=== PATIENT | female | born 1980 | race Caucasian/White ===

== ENCOUNTER 2019-11-26 15:38 | Observation (INO) ==
[2019-11-26] MEDS ORDERED: NORMAL SALINE 1,000 ML IV ONE ×2 (16:54→19:01)
[2019-11-26] MEDS ORDERED: METOCLOPRAMIDE HCL 5 MG/ML VIAL IV ONE ×2 (16:54→19:01)
[2019-11-26] MEDS ORDERED: ACETAMINOPHEN 1,000 MG/100 ML BTL IV ONE (17:01)
--- NOTE | 2019-11-26 17:03 | ERNOTE ---
Abdominal HPI - General Chief Complaint: Nausea/Vomiting Time Seen by Provider: 11/26/19 16:42 Source: patient Exam Limitations: no limitations - Immun/Allergies/Home Medications Immunizatons: IMMUNIZATION HX Immunizations Up to Date Yes History of Influenza Vaccine No Allergies/Adverse Reactions: Allergies No Known Allergies Allergy (Verified 11/26/19 17:18) Home Medications: HOME MEDICATIONS Insulin Glargine,Hum.rec.anlog [Lantus] 100 unit SQ DAILY 09/06/19 [Last Taken Unknown] Insulin Lispro [Humalog] 10 units SQ BID 09/06/19 [Last Taken Unknown] Metoclopramide HCl [Reglan] 5 mg PO QID 09/06/19 [Last Taken Unknown] Ondansetron [Zofran Odt] 4 mg PO Q6H PRN 09/06/19 [Last Taken Unknown] glipiZIDE [Glipizide] 10 mg PO BID 09/06/19 [Last Taken Unknown] metFORMIN HCL [Metformin HCl ER] 1,000 mg PO BID 09/06/19 [Last Taken Unknown] Ciprofloxacin HCl 500 mg PO BID 5 Days #10 tab 11/24/19 [Last Taken Unknown] - History of Present Illness Narrative: Patient is here for vomiting. she has been a diabetic for 15 years, was diagnosed two years ago with cyclic vomiting syndrome and has episodes every 4-6 weeks. she has extensive evaluation including Xray, CT, ultrasound, gall bladder test, scopes, stomach emptying studies, most the time she had to be admitted for symptoms to resolve. She moved to the area from [place] two months ago and is not established with a doctor here yet. Nine days ago she started to vomit and having the same epigastric pain that she usually get, no diarrhea, she was seen in the ER had labs and Xray, was diagnose with an UTI and felt better after IV fluids and nausea medication. Once she got home she started to vomit again, doesn't think she kept any of her medications down, still not diarrhea. She returns to the ER as she is unable to tolerate anything po. Timing: constant Quality: moderate Associated Symptoms: Present: nausea, vomiting. Absent: diarrhea-gross blood, fever/chills, shortness of breath Prior Abdominal Problems: Present: similar symptoms Prior Treatment: Present: recently seen, currently on antibiotics Review of Systems - Review of Systems Constitutional: Present: malaise. Absent: recent illness ENT: Absent: nose congestion, sore throat Respiratory: Absent: shortness of breath Cardiology: Absent: chest pain Gastrointestinal/Abdominal: Present: See HPI, nausea, abdominal pain. Absent: diarrhea, constipation Genitourinary: Present: frequency. Absent: dysuria Skin: Absent: rash Neurological: Present: weakness. Absent: headache Medical History (Last Updated 11/26/19 @ 19:44 by Cora Olivares MD) Cyclical vomiting Hx of diabetes mellitus Hx of essential hypertension Surgical History: Surgical History (Last Reviewed 11/26/19 @ 19:44 by Cora Olivares MD) History of ankle surgery Family History: Family History (Last Reviewed 11/26/19 @ 17:18 by Yoli Dunaway, RN) Other No pertinent family history Social History: (Last Reviewed 11/26/19 @ 17:18 by Yoli Dunaway, RN) Tobacco: Smoking Status: Never smoker Alcohol: alcohol intake: never Substance Use: substance use type: marijuana Physical Exam - Physical Exam General Appearance: Present: wd/wn, alert, mild distress Head Exam: Present: normal inspection Ears, Nose, Throat: Present: normal pharynx Respiratory: Present: no respiratory distress, normal breath sounds, no accessory muscle use, lungs clear Cardiovascular/Chest: Present: regular rate, rhythm, no murmur Gastrointestinal/Abdominal: Present: normal bowel sounds, nondistended, soft, tenderness - mild epigastric Back Exam: Present: no CVA tenderness Extremity Exam: Present: normal except - - right foot between 1st and 2nd toe skin ulcer involving both toes, left foot: on 1st, 3rd, 4th toe healing wound, no obvious open areas, no edema Neurological Exam: Present: alert, oriented, normal mood/affect Skin Exam: Present: normal color, warm/dry Progress - Results and Orders Patient's Lab Results:: I have reviewed the patient's lab results. - Vital Signs Patient's Vital Signs:: I have reviewed the patient's vital signs. Vital Signs: Vital Signs 11/26/19 15:44 Temperature 36.5 C Pulse Rate 112 H Respiratory Rate 20 Blood Pressure 194/94 H O2 Sat by Pulse Oximetry 100 - Progress/Reassessment Chief Complaint: Nausea/Vomiting Progress Note-Subjective: 11/26/19 16:59 reviewed chart from last visit urine cx grew E coli sensitive to cipro as same symptom will concentrate on symptoms control rather than running more tests 11/26/19 18:07 patient states that nausea and pain are somewhat better after reglan and IV tylenol, still vomited small amount she now shows me wound on her right foot between her 1st and 2nd toe, she noticed that after getting out of the shower about six days ago, has been taking a lot of showers as that seems to help the nausea will get labs now as glucose is elevated 11/26/19 19:02 patient vomiting again, pain also increased 11/26/19 19:[address] Grover, okay to admit for observation for intractable vomiting Departure Clinical Impression: Intractable cyclical vomiting - Departure Disposition: Still a patient Condition: Stable
[2019-11-26] MEDS ORDERED: cefTRIAXone SODIUM 1,000 MG/100 ML BAG IV ONE (18:07)
[2019-11-26] MEDS ORDERED: diphenhydrAMINE HCL 50 MG/ML VIAL IV ONE (18:07)
[2019-11-26 18:31] LABS: Hemoglobin 12.2 gm/dL (12.5-16.0); Mean Cell Volume 91.1 fl (78-100); Mean Corpuscular Hemoglobin 31.8 pg (27-31); Mean Corpuscular Hgb Conc 34.9 g/dl (32-36); Mean Platelet Volume 9.2 fl (8-12.5); Neutrophil % 67.6 % (42-75.0); Platelet Count 412 K/mm3 (150-450); Red Blood Count 3.84 M/mm3 (4.2-5.4); Red Cell Distribution Width 11.4 % (11.5-14.0); White Blood Count 10.4 K/mm3 (4.0-10.5)
[2019-11-26 18:48] LABS: ALT 20 U/L (19-67); AST 13 U/L (0-48); Albumin * 3.2 gm/dl (3.4-5.0); Alkaline Phosphatase * 113 U/L (50-170); Anion Gap 14.1 mmol/L (6.8-13.8); BUN/Creatinine Ratio 14.7 (9.0-21.6); Bilirubin, Total 0.6 mg/dL (0.0-1.1); Blood Urea Nitrogen 11 mg/dL (3-23); CRP 0.2 mg/dL (0.0-0.9); Calcium * 8.7 mg/dL (7.9-10.9); Carbon Dioxide 26.7 mmol/L (24-32.6); Chloride 96 mmol/L (97-106); Glucose * 260 mg/dL (70-110); Potassium 3.8 mmol/L (3.4-4.6); Sodium 133 mmol/L (132-142); Total Protein 7.1 gm/dL (6.2-8.2)
[2019-11-26] MEDS ORDERED: ONDANSETRON HCL/PF 2 MG/ML VIAL IV PRN (19:18)
[2019-11-26] MEDS: HYDROmorphone HCL 1 MG/ML DISP.SYRIN IV PRN ×2 (19:29→23:38)
--- NOTE | 2019-11-26 19:36 | HP ---
Chief Complaint - Chief Complaint Date of Service: 11/26/19 Time of Service: 19:08 Chief Complaint: Nausea and vomiting and abdominal pain History of Present Illness: 39-year-old female with a past medical history of diabetes mellitus, hypertension, questionable gastroparesis versus cyclical vomiting syndrome presents with complaints of intractable vomiting and nausea. She states her symptoms began on 9 days ago. She was seen in the emergency department 2 days ago and was given IV fluids, told she had a urinary tract infection and sent home with antibiotics. She returns today to her symptoms not resolving. She complains of epigastric abdominal pain, denies diarrhea or sick contacts. She denies dysuria or urinary frequency. States she noted that her urine was foul- smelling and the color had changed. In the ER she was given a dose of ceftriaxone urinary tract infection because she had not been able to keep the antibiotics down. She does have a history of marijuana use. She states she uses it for management of her pain. She is being admitted for intractable vomiting. Medical History (Last Reviewed 11/26/19 @ 17:18 by Yoli Dunaway RN) Hx of diabetes mellitus Hx of essential hypertension Surgical History: Surgical History (Last Reviewed 11/26/19 @ 17:18 by Yoli Dunaway RN) History of ankle surgery Family History: Family History (Last Reviewed 11/26/19 @ 17:18 by Yloi Dunaway RN) Other No pertinent family history Social History: (Last Reviewed 11/26/19 @ 17:18 by Yoli Dunaway RN) Tobacco: Smoking Status: Never smoker Alcohol: alcohol intake: never Substance Use: substance use type: marijuana Review Of Systems (GEN) - Review of Systems Generalized/Overall Review: Present: Chills. Absent: Fever Respiratory: Absent: Shortness of Breath Cardiac: Absent: Chest Pain Abdominal: Present: Nausea, Vomiting, Abdominal Pain - Epigastric Misc: All systems neg except as marked Immunizations: IMMUNIZATION HX Immunizations Up to Date Yes History of Influenza Vaccine No Allergies/Adverse Reactions: Allergies Allergy/AdvReac Type Severity Reaction Status Date / Time No Known Allergies Allergy Verified 11/26/19 17:18 Home Medications: HOME MEDICATIONS Insulin Glargine,Hum.rec.anlog [Lantus] 100 unit SQ DAILY 09/06/19 [Last Taken Unknown] Insulin Lispro [Humalog] 10 units SQ BID 09/06/19 [Last Taken Unknown] Metoclopramide HCl [Reglan] 5 mg PO QID 09/06/19 [Last Taken Unknown] Ondansetron [Zofran Odt] 4 mg PO Q6H PRN 09/06/19 [Last Taken Unknown] glipiZIDE [Glipizide] 10 mg PO BID 09/06/19 [Last Taken Unknown] metFORMIN HCL [Metformin HCl ER] 1,000 mg PO BID 09/06/19 [Last Taken Unknown] Ciprofloxacin HCl 500 mg PO BID 5 Days #10 tab 11/24/19 [Last Taken Unknown] Exam - Exam Vital Signs: Vital Signs - Last Taken Temp 36.5 C 11/26/19 15:44 Pulse 111 H 11/26/19 17:15 Resp 14 11/26/19 17:15 BP 182/115 H 11/26/19 17:15 Pulse Ox 100 11/26/19 17:15 Constitutional: Present: Alert, Cooperative, Well developed, Well nourished ENT Exam: Present: hearing grossly normal Eye Exam: bilateral eye: normal inspection Neck: Present: normal inspection Back Exam: Present: no CVA tenderness, no vertebral tenderness Respiratory: Present: lungs clear, no respiratory distress, no accessory muscle use, No wheezing. Absent: crackles, rhonchi Cardiovascular/Chest: Present: normal peripheral pulses, regular rate, rhythm, no murmur Peripheral Pulses: dorsalis-pedis (R): 1+, dorsalis-pedis (L): 1+ Abdomen: Present: Normal bowel sounds, soft, nontender Extremity: Present: no pedal edema Skin Exam: Present: normal color, warm/dry Neurologic: Present: alert, normal mood/affect Appearance: Present: appropriate appearance, appropriate insight Eye contact: Present: cooperative Thoughts: Present: normal thought pattern, normal mood /affect Diagnostic Studies: Abnormal Lab Results 11/26/19 11/26/19 Range/Units 18:25 18:25 RBC 3.84 L (4.2-5.4) M/mm3 Hgb 12.2 L (12.5-16.0) gm/dL Hct 35.0 L (37.0-47.0) % MCH 31.8 H (27-31) pg RDW 11.4 L (11.5-14.0) % Immature Gran % (Auto) 0.50 H (0.001-0.429) % Immature Gran # (Auto) 0.05 H (0.000-0.0310) K/mm3 Neutrophils # 7.0 H (1.3-6.0) K/mm3 Chloride 96 L (97-106) mmol/L Anion Gap 14.1 H (6.8-13.8) mmol/L Random Glucose 260 H (70-110) mg/dL Albumin 3.2 L (3.4-5.0) gm/dl Laboratory Results WBC 10.4 K/mm3 (4.0-10.5) D 11/26/19 18:25 RBC 3.84 M/mm3 (4.2-5.4) L 11/26/19 18:25 Hgb 12.2 gm/dL (12.5-16.0) L 11/26/19 18:25 Hct 35.0 % (37.0-47.0) L 11/26/19 18:25 MCV 91.1 fl (78-100) 11/26/19 18:25 MCH 31.8 pg (27-31) H 11/26/19 18:25 MCHC 34.9 g/dl (32-36) 11/26/19 18:25 RDW 11.4 % (11.5-14.0) L 11/26/19 18:25 Plt Count 412 K/mm3 (150-450) 11/26/19 18:25 MPV 9.2 fl (8-12.5) 11/26/19 18:25 Immature Gran % (Auto) 0.50 % (0.001-0.429) H 11/26/19 18:25 Immature Gran # (Auto) 0.05 K/mm3 (0.000-0.0310) H 11/26/19 18:25 Neutrophils % 67.6 % (42-75.0) 11/26/19 18:25 Lymphocytes % 24.8 % (20-51) 11/26/19 18:25 Monocytes % 6.4 % (0.0-9) 11/26/19 18:25 Eosinophils % 0.3 % (0.0-3.0) 11/26/19 18:25 Basophils % 0.4 % (0.0-1.0) 11/26/19 18:25 Nucleated RBC % 0.0 k/mm3 (0-1) 11/26/19 18:25 Neutrophils # 7.0 K/mm3 (1.3-6.0) H 11/26/19 18:25 Lymphocytes # 2.57 k/mm3 (1.5-3.5) 11/26/19 18:25 Monocytes # 0.7 k/mm3 (0.0-1.0) 11/26/19 18:25 Eosinophils # 0.0 k/mm3 (0.0-0.7) 11/26/19 18:25 Absolute Basophils 0.0 k/mm3 (0.0-0.1) 11/26/19 18:25 VBG pH 7.387 (7.32-7.43) 11/26/19 18:25 Sodium 133 mmol/L (132-142) 11/26/19 18:25 Plasma Sodium 136 mmol/L (130-142) 11/26/19 18:25 Potassium 3.8 mmol/L (3.4-4.6) 11/26/19 18:25 Chloride 96 mmol/L (97-106) L 11/26/19 18:25 Carbon Dioxide 26.7 mmol/L (24-32.6) 11/26/19 18:25 Anion Gap 14.1 mmol/L (6.8-13.8) H 11/26/19 18:25 BUN 11 mg/dL (3-23) 11/26/19 18:25 Creatinine 0.75 mg/dL (0.4-1.4) 11/26/19 18:25 Est GFR (Non-Af Amer) 92 mL/min (60-130) 11/26/19 18:25 BUN/Creatinine Ratio 14.7 (9.0-21.6) 11/26/19 18:25 Random Glucose 260 mg/dL (70-110) H 11/26/19 18:25 Calcium 8.7 mg/dL (7.9-10.9) 11/26/19 18:25 Calcium Adj for Albumin 9.0 mg/dL (8.4-10.2) 11/26/19 18:25 Total Bilirubin 0.6 mg/dL (0.0-1.1) 11/26/19 18:25 AST 13 U/L (0-48) 11/26/19 18:25 ALT 20 U/L (19-67) 11/26/19 18:25 Alkaline Phosphatase 113 U/L (50-170) 11/26/19 18:25 C-Reactive Prot, Quant 0.2 mg/dL (0.0-0.9) 11/26/19 18:25 Total Protein 7.1 gm/dL (6.2-8.2) 11/26/19 18:25 Albumin 3.2 gm/dl (3.4-5.0) L 11/26/19 18:25 Serum Ketones Negative (NEGATIVE) 11/26/19 18:25 Assessment/Plan - Narrative Narrative: 39-year-old female with a past medical history of diabetes mellitus, hypertension, questionable gastroparesis versus cyclical vomiting syndrome presents with complaints of intractable vomiting and nausea. She states her symptoms began on 9 days ago. In the ER she was given a dose of ceftriaxone urinary tract infection because she had not been able to keep the antibiotics down. She does have a history of marijuana use. She states she uses it for management of her pain. She is being admitted for intractable vomiting. Plan #1 continue with Zofran 4 mg IV every 6 hours as needed #2 IV fluid hydration with normal saline #3 Vasotec for hypertension #4 CBC and CMP in the morning #5 resume home medications for comorbidities #6 advance diet as tolerated - Assessment/Plan (1) Intractable cyclical vomiting Problem: Acute (2) Hypertension Problem: Chronic Qualifiers: Hypertension type: essential hypertension Qualified Code(s): I10 - Essential (primary) hypertension (3) Diabetes Problem: Chronic Qualifiers: Diabetes mellitus type: type 2 (4) Urinary tract infection Problem: Acute
[2019-11-26] MEDS: ENALAPRILAT DIHYDRATE 1.25 MG/ML VIAL IV SCH (21:24)
[2019-11-26] MEDS ORDERED: PROMETHAZINE HCL 25 MG TABLET PO ONE (22:01)
[2019-11-27] MEDS: ENALAPRILAT DIHYDRATE 1.25 MG/ML VIAL IV SCH ×2 (02:15→12:20)
[2019-11-27] MEDS: METOCLOPRAMIDE HCL 5 MG/ML VIAL IV PRN ×2 (02:22→08:55)
[2019-11-27] MEDS: HYDROmorphone HCL 1 MG/ML DISP.SYRIN IV PRN ×2 (03:43→08:29)
[2019-11-27 06:39] LABS: Mean Cell Volume 90.9 fl (78-100); Mean Corpuscular Hemoglobin 31.3 pg (27-31); Mean Corpuscular Hgb Conc 34.4 g/dl (32-36); Mean Platelet Volume 9.5 fl (8-12.5); Neutrophil # 4.4 K/mm3 (1.3-6.0); Neutrophil % 42.9 % (42-75.0); Platelet Count 360 K/mm3 (150-450); Red Blood Count 3.52 M/mm3 (4.2-5.4); Red Cell Distribution Width 11.3 % (11.5-14.0); White Blood Count 10.3 K/mm3 (4.0-10.5)
[2019-11-27 06:50] LABS: Albumin * 2.6 gm/dl (3.4-5.0); Anion Gap 8.7 mmol/L (6.8-13.8); BUN/Creatinine Ratio 10.9 (9.0-21.6); Bilirubin, Total 0.6 mg/dL (0.0-1.1); Ca. Corrected For Albumin 9.3 mg/dL (8.4-10.2); Calcium * 8.5 mg/dL (7.9-10.9); Carbon Dioxide 26.8 mmol/L (24-32.6); Potassium 3.5 mmol/L (3.4-4.6); Total Protein 5.9 gm/dL (6.2-8.2)
[2019-11-27] MEDS ORDERED: LISINOPRIL 20 MG TABLET PO SCH (09:00)
[2019-11-27] MEDS ORDERED: INSULIN GLARGINE,HUM.REC.ANLOG 100 UNITS/ML VIAL SC SCH ×2 (09:00→16:00)
[2019-11-27] MEDS ORDERED: GABAPENTIN 100 MG CAPSULE PO PRN (09:31)
[2019-11-27] MEDS: glipiZIDE 10 MG TABLET PO SCH ×2 (09:38→22:04)
[2019-11-27] MEDS ORDERED: METOCLOPRAMIDE HCL 10 MG TABLET PO PRN (10:05)
[2019-11-27] MEDS: CIPROFLOXACIN HCL 500 MG TABLET PO SCH ×2 (10:39→21:05)
--- NOTE | 2019-11-27 11:37 | PN ---
Subjective - Date and Time Seen Date: 11/27/19 Time: 09:38 Subjective Narrative: She states she feels better today. Denies nausea vomiting this morning. Abdominal pain is being controlled well with the Dilaudid. She is tolerating liquids Objective - Review of Systems Generalized/Overall Review: Denies: Chills, Fever Respiratory: Denies: Shortness of Breath Cardiac: Denies: Chest Pain Abdominal: Reports: Nausea. Denies: Vomiting, Abdominal Pain Misc: All systems neg except as marked - Vitals Vitals: Last Vital Signs Temp 36.8 C 11/27/19 06:43 Pulse 99 11/27/19 09:37 Resp 16 11/27/19 06:43 BP 178/108 H 11/27/19 09:37 Pulse Ox 100 11/27/19 06:43 - Abnormal Lab Findings Abnormal Lab Findings: Abnormal Lab Results 11/26/19 11/26/19 11/27/19 Range/Units 18:25 18:25 06:15 RBC 3.84 L 3.52 L (4.2-5.4) M/mm3 Hgb 12.2 L 11.0 L (12.5-16.0) gm/dL Hct 35.0 L 32.0 L (37.0-47.0) % MCH 31.8 H 31.3 H (27-31) pg RDW 11.4 L 11.3 L (11.5-14.0) % Immature Gran % (Auto) 0.50 H (0.001-0.429) % Immature Gran # (Auto) 0.05 H 0.04 H (0.000-0.0310) K/mm3 Neutrophils # 7.0 H (1.3-6.0) K/mm3 Lymphocytes # 4.85 H (1.5-3.5) k/mm3 Sodium (132-142) mmol/L Chloride 96 L (97-106) mmol/L Anion Gap 14.1 H (6.8-13.8) mmol/L Est GFR (Non-Af Amer) (60-130) mL/min Random Glucose 260 H (70-110) mg/dL ALT (19-67) U/L Total Protein (6.2-8.2) gm/dL Albumin 3.2 L (3.4-5.0) gm/dl 11/27/19 Range/Units 06:15 RBC (4.2-5.4) M/mm3 Hgb (12.5-16.0) gm/dL Hct (37.0-47.0) % MCH (27-31) pg RDW (11.5-14.0) % Immature Gran % (Auto) (0.001-0.429) % Immature Gran # (Auto) (0.000-0.0310) K/mm3 Neutrophils # (1.3-6.0) K/mm3 Lymphocytes # (1.5-3.5) k/mm3 Sodium 130 L (132-142) mmol/L Chloride (97-106) mmol/L Anion Gap (6.8-13.8) mmol/L Est GFR (Non-Af Amer) 132 H D (60-130) mL/min Random Glucose 194 H (70-110) mg/dL ALT 12 L (19-67) U/L Total Protein 5.9 L (6.2-8.2) gm/dL Albumin 2.6 L (3.4-5.0) gm/dl - Exam Constitutional: Present: Alert, Cooperative, Well developed, Well nourished, Obese ENT Exam: Present: hearing grossly normal Neck: Present: non-tender, supple, trachea midline. Absent: lymphadenopathy (R), lymphadenopathy (L) Respiratory: Present: lungs clear, No wheezing. Absent: crackles, rhonchi Cardiovascular/Chest: Present: normal peripheral pulses, regular rate, rhythm, no murmur Abdomen: Present: Normal bowel sounds, soft, nontender Extremity: Present: no pedal edema Skin Exam: Present: normal color, warm/dry Neurologic: Present: alert, normal mood/affect Appearance: Present: appropriate appearance Eye contact: Present: cooperative Thoughts: Present: normal thought pattern Assessment/Plan Plan Narrative: 39-year-old female with a past medical history of diabetes mellitus, hypertension, questionable gastroparesis versus cyclical vomiting syndrome presents with complaints of intractable vomiting and nausea. She states her symptoms began on 9 days ago. In the ER she was given a dose of ceftriaxone urinary tract infection because she had not been able to keep the antibiotics down. She does have a history of marijuana use. She states she uses it for management of her pain. She is being admitted for intractable vomiting. Plan #1 Transition to oral medications, Reglan 10 mg every 6 hours as needed and Percocet 5-325 mg every 4 hours as needed #2 Stop IV fluids because she is tolerating her diet. #3 Stop Vasotec and restart her on her lisinopril 20 mg daily #4 Advance diet as tolerated #5 Continue with home medications for comorbidities - Problems/Diagnosis (1) Intractable cyclical vomiting Problem: Acute (2) Hypertension Problem: Chronic Qualifiers: Hypertension type: essential hypertension Qualified Code(s): I10 - Essential (primary) hypertension (3) Diabetes Problem: Chronic Qualifiers: Diabetes mellitus type: type 2 (4) Urinary tract infection Problem: Acute
[2019-11-27] MEDS: INSULIN LISPRO 100 UNITS/ML VIAL SC SCH ×2 (12:26→22:04)
[2019-11-27] MEDS ORDERED: amLODIPine BESYLATE 5 MG TABLET PO SCH (13:30)
[2019-11-27] MEDS: oxyCODONE HCL/ACETAMINOPHEN 1 TAB TABLET PO PRN ×2 (14:03→19:24)
--- NOTE | 2019-11-27 16:48 | DS ---
(1) Intractable cyclical vomiting Problem: Resolved (2) Hypertension Problem: Chronic Qualifiers: Hypertension type: essential hypertension Qualified Code(s): I10 - Essential (primary) hypertension (3) Diabetes Problem: Chronic Qualifiers: Diabetes mellitus type: type 2 (4) Urinary tract infection Problem: Acute Qualifiers: Urinary tract infection type: acute cystitis Hospital Course: 39-year-old female with a past medical history of diabetes mellitus, hypertension, questionable gastroparesis versus cyclical vomiting syndrome presents with complaints of intractable vomiting and nausea. She states her symptoms began on 9 days ago. In the ER she was given a dose of ceftriaxone urinary tract infection because she had not been able to keep the antibiotics down. She does have a history of marijuana use. She states she uses it for management of her pain. She was admitted for intractable vomiting. Her nausea and vomiting improved and were managed with oral medications. Pain was managed with oral medications she tolerated an oral diet. She is stable to be discharged home. She should follow-up with a primary care provider within 1 week of discharge. Procedures Performed: none Results and Findings: Lab Pending Results 11/26/19 18:25: WBC 10.4 D, RBC 3.84 L, Hgb 12.2 L, Hct 35.0 L, MCV 91.1, MCH 31.8 H, MCHC 34.9, RDW 11.4 L, Plt Count 412, MPV 9.2, Immature Gran % (Auto) 0. 50 H, Immature Gran # (Auto) 0.05 H, Neutrophils % 67.6, Lymphocytes % 24.8, Monocytes % 6.4, Eosinophils % 0.3, Basophils % 0.4, Nucleated RBC % 0.0, Neutrophils # 7.0 H, Lymphocytes # 2.57, Monocytes # 0.7, Eosinophils # 0.0, Absolute Basophils 0.0 11/26/19 18:25: VBG pH 7.387 11/26/19 18:25: Sodium 133, Plasma Sodium 136, Potassium 3.8, Chloride 96 L, Carbon Dioxide 26.7, Anion Gap 14.1 H, BUN 11, Creatinine 0.75, Est GFR (Non-Af Amer) 92, BUN/Creatinine Ratio 14.7, Random Glucose 260 H, Calcium 8.7, Calcium Adj for Albumin 9.0, Total Bilirubin 0.6, AST 13, ALT 20, Alkaline Phosphatase 113, C-Reactive Prot, Quant 0.2, Total Protein 7.1, Albumin 3.2 L, Serum Ketones Negative 11/27/19 06:15: WBC 10.3, RBC 3.52 L, Hgb 11.0 L, Hct 32.0 L, MCV 90.9, MCH 31.3 H, MCHC 34.4, RDW 11.3 L, Plt Count 360, MPV 9.5, Immature Gran % (Auto) 0.40, Immature Gran # (Auto) 0.04 H, Neutrophils % 42.9, Lymphocytes % 47.1, Monocytes % 7.7, Eosinophils % 1.5, Basophils % 0.4, Nucleated RBC % 0.0, Neutrophils # 4.4, Lymphocytes # 4.85 H, Monocytes # 0.8, Eosinophils # 0.2, Absolute Basophils 0.0 11/27/19 06:15: Sodium 130 L, Plasma Sodium 132, Potassium 3.5, Chloride 98, Carbon Dioxide 26.8, Anion Gap 8.7, BUN 6, Creatinine 0.55, Est GFR (Non-Af Amer) 132 H D, BUN/Creatinine Ratio 10.9, Random Glucose 194 H, Calcium 8.5, Calcium Adj for Albumin 9.3, Total Bilirubin 0.6, AST 10, ALT 12 L, Alkaline Phosphatase 86, Total Protein 5.9 L, Albumin 2.6 L Discharge Location: Home Disposition: Home self-care Condition: Stable Discharge Activity: Activity as tolerated Discharge Diet: Consistent carbs Prescriptions (Any new or edited meds): Ciprofloxacin HCl [Cipro] 500 mg PO BID #5 tab Transmission Status: Pending to [facility] #[id number] amLODIPine BESYLATE [Norvasc] 5 mg PO DAILY #14 tab Transmission Status: Pending to [facility] #[id number] oxyCODONE HCL/ACETAMINOPHEN [Percocet 5 MG/325 MG] 1 tab PO BID PRN #8 tab PRN Reason: Moderate Pain (Pain Scale 4-6) Transmission Status: Received by [facility] #[id number] Complete Home Medications List: Complete Home Medication List: Insulin Glargine,Hum.rec.anlog [Lantus] 100 unit SQ 1600 09/06/19 Insulin Lispro [Humalog] 10 units SQ BID 09/06/19 Metoclopramide HCl [Reglan] 5 mg PO QID 09/06/19 Ondansetron [Zofran Odt] 4 mg PO Q6H PRN 09/06/19 glipiZIDE [Glipizide] 10 mg PO BID 09/06/19 metFORMIN HCL [Metformin HCl ER] 500 mg PO BID 09/06/19 Ciprofloxacin HCl 500 mg PO BID 5 Days #10 tab 11/24/19 Ciprofloxacin HCl [Cipro] 500 mg PO BID #5 tab 11/27/19 Gabapentin [Neurontin] 100 mg PO BID PRN 11/27/19 Lisinopril [Zestril] 20 mg PO DAILY 11/27/19 Pravastatin Sodium 10 mg PO DAILY 11/27/19 amLODIPine BESYLATE [Norvasc] 5 mg PO DAILY #14 tab 11/27/19 oxyCODONE HCL/ACETAMINOPHEN [Percocet 5 MG/325 MG] 1 tab PO BID PRN #8 tab 11/27/19
[2019-11-27 21:00] VITALS: BP 143/84
[2019-11-28] MEDS ORDERED: SIMVASTATIN 5 MG TABLET PO SCH (09:00)
== END 2019-11-27 21:15 | disposition home or self-care (01) ==
LOC: MS 15:38 → ER 15:38 → MS 19:49
PROVIDERS: ADMIT Internal Medicine; ATTEND Internal Medicine
DX: I10 Essential (primary) hypertension; R11.15 Cyclical vomiting syndrome unrelated to migraine; N39.0 Urinary tract infection, site not specified; E11.9 Type 2 diabetes mellitus without complications
CPT/HCPCS: 36415; 80053; 82009; 82800; 85025; 86140; 96365; 96366; 96372; 96375; 99285; G0378; J0131

== ENCOUNTER 2020-11-26 23:01 | Inpatient (IN) ==
[2020-11-26] MEDS ORDERED: INSULIN REGULAR, HUMAN 100 UNITS/ML VIAL IV ONE (23:14)
[2020-11-26] MEDS ORDERED: NORMAL SALINE 1,000 ML IV STA (23:14)
[2020-11-26] MEDS ORDERED: ONDANSETRON HCL/PF 2 MG/ML VIAL IV ONE (23:25)
[2020-11-26 23:46] LABS: Hematocrit 37.4 % (37.0-47.0); Hemoglobin 11.9 gm/dL (12.5-16.0); Mean Cell Volume 96.4 fl (78-100); Mean Corpuscular Hemoglobin 30.7 pg (27-31); Mean Corpuscular Hgb Conc 31.8 g/dl (32-36); Mean Platelet Volume 11.1 fl (8-12.5); Platelet Count 366 K/mm3 (150-450); Red Blood Count 3.88 M/mm3 (4.2-5.4); Red Cell Distribution Width 12.5 % (11.5-14.0); White Blood Count 18.1 K/mm3 (4.0-10.5)
[2020-11-26 23:49] LABS: Total Cells Counted 100
--- NOTE | 2020-11-26 23:52 | ERNOTE ---
<Sally Mcmillan - Last Filed: 11/27/20 07:55> Medical Problem HPI - Narrative Date of Service: 11/26/20 - General Chief Complaint: Diabetes Related Problem Time Seen by Provider: 11/26/20 23:09 Source: patient Exam Limitations: no limitations - Immun/Allergies/Home Medications Immunizations: IMMUNIZATION HX Immunizations Up to Date Yes History of Influenza Vaccine No Hx Pneumococcal Vaccination No Allergies/Adverse Reactions: Allergies No Known Allergies Allergy (Verified 11/27/20 14:03) Home Medications: HOME MEDICATIONS Blood Sugar Diagnostic [Test Strips] 1 ea MC QID #1 bottle 01/15/20 [Last Taken Unknown] Lisinopril 20 mg PO DAILY #30 tab 01/15/20 [Last Taken Unknown] amLODIPine BESYLATE [Norvasc] 5 mg PO DAILY #30 tab 01/15/20 [Last Taken U nknown] glipiZIDE [Glipizide] 10 mg PO BID #60 tab 01/15/20 [Last Taken Unknown] metFORMIN HCL [Metformin HCl ER] 500 mg PO BID #60 tab.er.24h 01/15/20 [Last Taken Unknown] Gabapentin 300 mg PO TID 10/19/20 [Last Taken Unknown] Promethazine HCl [Phenergan] 25 mg PO QID PRN #10 tab 10/19/20 [Last Taken Unknown] Acyclovir [Zovirax] 400 mg PO TID PRN 11/27/20 [Last Taken Unknown] HYDROcodone/ACETAMINOPHEN [Hydrocodon-Acetaminophen 5-325] 1 ea PO Q4H PRN 11/27/20 [Last Taken Unknown] Insulin Aspart [Novolog Flexpen] 10 unit SQ BIDAC 11/27/20 [Last Taken Unknown] Insulin Glargine,Hum.rec.anlog [Lantus Solostar] 50 unit SQ .QPM 11/27/20 [Last Taken Unknown] Insulin Glargine,Hum.rec.anlog [Lantus Solostar] 55 unit SQ .QAM 11/27/20 [Last Taken Unknown] Ketorolac Tromethamine 10 mg PO QID PRN 11/27/20 [Last Taken Unknown] Metoclopramide HCl [Reglan] 10 mg PO QID 11/27/20 [Last Taken Unknown] Nortriptyline HCl 50 mg PO HS 11/27/20 [Last Taken Unknown] hydrOXYzine HCL [Atarax] 10 mg PO QID PRN 11/27/20 [Last Taken Unknown] - History of Present History Narrative: Patient is brought in by ambulance. We received report that she was unresponsive however she is responsive and answering questions here. She brings in paperwork from the last few days, she was seen here and another facility diagnosed twice with cyclic vomiting. Her boyfriend states that she has been completely unable to keep any oral medication down as well as any fluids. The patient herself states that is been a very long time since she urinated. She is dry heaving here. She does have history of diabetes. She is insulin-dependent although she states she is type II. She reports she is very weak, cannot stop vomiting. Review of Systems - Review of Systems Constitutional: Present: weakness, fatigue EYE: Present: blurred vision Respiratory: Present: shortness of breath Cardiology: Present: chest pain Gastrointestinal/Abdominal: Present: nausea, vomiting Genitourinary: Present: decreased urinary output Skin: Present: dryness Endocrine: Present: increased thirst Medical History (Last Reviewed 11/26/20 @ 23:49 by Sally Mcmillan MD) Cyclical vomiting Hx of diabetes mellitus type 2 Hx of essential hypertension Hypercholesteremia Neuropathy Surgical History: Surgical History (Last Reviewed 11/26/20 @ 23:49 by Sally Mcmillan MD) History of ankle surgery Family History: Family History (Last Reviewed 11/26/20 @ 23:49 by Sally Mcmillan MD) Other No pertinent family history Social History: (Last Reviewed 11/26/20 @ 23:49 by Sally Mcmillan MD) Social History: adopted: No Marital status: Single lives independently: Yes household members: significant other number of children: 0 parent marital status: umarried, living together current occupational status: unemployed Highest level of school completed/degree received: high school graduate Tobacco: Smoking Status: Never smoker Alcohol: alcohol intake: never Substance Use: substance use type: marijuana details: states she hasn't used for 2 weeks Dietary Habits: caffeine: No Physical Exam - Physical Exam General Appearance: Present: moderate distress - smells of DKA, lethargic - lips are dry and cracked Head Exam: Present: normal inspection - I told Eye Exam: Normal inspection: bilateral, PERRL: bilateral Respiratory: Present: normal breath sounds - tachypnea Cardiovascular/Chest: Present: tachycardia Gastrointestinal/Abdominal: Present: nontender, soft Neurological Exam: Present: alert, oriented Skin Exam: Present: normal color, warm/dry Progress - Results and Orders Patient's Lab Results:: I have reviewed the patient's lab results. Results and Orders: Laboratory Tests 11/26/20 11/26/20 11/26/20 23:45 23:45 23:45 WBC 18.1 H D Hgb 11.9 L Hct 37.4 Plt Count 366 Sodium 136 Potassium 3.0 L Chloride 93 L Carbon Dioxide 5.3 L Anion Gap 40.7 H Lactic Acid, Venous 1.5 Creatine Kinase 123 Troponin I Less than 0.017 Serum Ketones Positive - 80mg/dl H Laboratory Tests 11/26/20 23:45 Creatinine 1.56 H D Est GFR (Non-Af Amer) 39 L D Random Glucose 815 H Calcium 8.6 AST 13 ALT 22 Alkaline Phosphatase 110 Laboratory Tests 11/27/20 02:45 Plasma Sodium 150 H Potassium 3.0 L Chloride 104 Carbon Dioxide 8.5 L Anion Gap 33.5 H BUN 54 H Creatinine 1.33 BUN/Creatinine Ratio 40.6 H Random Glucose 542 H D AST 12 ALT 21 Alkaline Phosphatase 104 Total Protein 6.1 L Albumin 2.6 L Laboratory Tests 11/27/20 11/27/20 02:45 04:30 Sodium 143 H 143 H Plasma Sodium 149 H Potassium 3.0 L 3.0 L Carbon Dioxide 8.5 L 11.3 L Anion Gap 33.5 H 29.7 H BUN 54 H 51 H Est GFR (Non-Af Amer) 47 L D 51 L BUN/Creatinine Ratio 40.6 H 40.5 H Random Glucose 542 H D 474 H Laboratory Tests 11/27/20 06:05 Sodium 145 H Potassium 2.7 L Chloride 108 H Carbon Dioxide 14.5 L Anion Gap 25.2 H BUN 48 H Creatinine 1.27 Est GFR (Non-Af Amer) 50 L BUN/Creatinine Ratio 37.8 H Random Glucose 406 H - Vital Signs Patient's Vital Signs:: I have reviewed the patient's vital signs. Vital Signs: Vital Signs 11/26/20 23:04 Temperature 36.2 C Pulse Rate 100 Respiratory Rate 28 H O2 Sat by Pulse Oximetry 99 - EKG EKG #1 EKG: NSR EKG read: Interp. by me EKG Comments: EKG shows normal sinus rhythm, no ST elevations or depressions. Ventricular rate is 99. - Progress/Reassessment Chief Complaint: Diabetes Related Problem Progress:: Improved Progress Note-Subjective: 11/27/20 01:00 pt refused ABGs. She continued to be very combative, pulling at IVs and plunkett catheter. Her boyfriend was helpful for a time in keeping her distracted and IV lorazapam was also used to try to calm pt and help her follow directions and stop pulling at lines. These measures were unsuccessful, and eventually the pt had to be placed in soft restraints with UEs only for her benefit so that we could continue to treat her, given the severity of her medical condition. Her boyfriend agreed, and welcomed this treatment measure as he could see that her behavior was making it difficult to take care of her medically. She received 3L IVF, 1LNS with 40 KCL, insulin drip, zofran. She required lorazapam X2 to calm. She eventually was able to rest. Second set of labs were improved. Blood sugar 500s, potassium stable although still low. She is sleeping and not able to take oral potassium at this time. Rate of IV potassium is increa sed and insulin drip is decreased from 11units per hour to 8 units per hour. We attempted to have patient admitted to floor, but unable due to lack of staffing. She is unable to be transferred to facility elsewhere due to lack of available transportation. We will continue to care for her here, repeat blood sugar and potassium q 1 hour and adjust accordingly. 11/27/20 03:29 11/27/20 04:55 pts repeat labs are improving. potassium continues to be 3.0. blood sugar is 474. vitals are also stabilizing. pulse 101. bp 134/71. she is resting comfortably. restraints removed. insulin drip continued at 8units. potassium drip continued at 60/hr. 11/27/20 04:55 11/27/20 07:45 Patient continues resting. Still unable to take p.o. potassium. Continues receiving IV potassium replacement and 8 units of insulin hourly. Staffing continues to be a problem here. Placement at other facilities with transportation continues to be a problem. Estimated time of potential departure for another facility is approximately 3 hours out. Discussed case with oncoming physician. Care is transitioned at 0800. Plan currently is to work on increasing potassium and transfer to another facility when able. - Transfer of Care Physician Sign Out: Sally Mcmillan Receiving Physician: Bart Oliver Expected Disposition: Transfer Departure Clinical Impression: DKA (diabetic ketoacidoses), Hypokalemia with shifts of fluid from extracellular to intracellular space - Departure Disposition: Still a patient Condition: Stable <Bart Oliver - Last Filed: 12/01/20 10:57> Medical Problem HPI - Immun/Allergies/Home Medications Immunizations: IMMUNIZATION HX Immunizations Up to Date Yes History of Influenza Vaccine No Hx Pneumococcal Vaccination No Medical History (Last Reviewed 11/26/20 @ 23:49 by Sally Mcmillan MD) Cyclical vomiting Hx of diabetes mellitus type 2 Hx of essential hypertension Hypercholesteremia Neuropathy Surgical History: Surgical History (Last Reviewed 11/26/20 @ 23:49 by Sally Mcmillan MD) History of ankle surgery Family History: Family History (Last Reviewed 11/26/20 @ 23:49 by Sally Mcmillan MD) Other No pertinent family history Social History: (Last Reviewed 11/26/20 @ 23:49 by Sally Mcmillan MD) Social History: adopted: No Marital status: Single lives independently: Yes household members: significant other number of children: 0 parent marital status: umarried, living together current occupational status: unemployed Highest level of school completed/degree received: high school graduate Tobacco: Smoking Status: Never smoker Alcohol: alcohol intake: never Substance Use: substance use type: marijuana details: states she hasn't used for 2 weeks Dietary Habits: caffeine: No Progress - Vital Signs Vital Signs: Vital Signs 11/27/20 02:59 11/27/20 03:00 11/27/20 03:15 Pulse Rate 104 H 104 H 105 H Respiratory Rate 26 H 26 H 22 H Blood Pressure 155/90 H 155/90 H 142/86 H O2 Sat by Pulse Oximetry 100 100 100 11/27/20 03:30 11/27/20 03:45 11/27/20 03:59 Pulse Rate 105 H 105 H 105 H Respiratory Rate 14 18 18 Blood Pressure 145/85 H 157/84 H 157/84 H O2 Sat by Pulse Oximetry 100 100 100 11/27/20 04:15 11/27/20 04:45 11/27/20 05:00 Pulse Rate 104 H 102 H 103 H Respiratory Rate 19 21 H 22 H Blood Pressure 128/75 129/75 129/75 O2 Sat by Pulse Oximetry 100 99 99 11/27/20 05:30 11/27/20 05:45 11/27/20 06:00 Pulse Rate 106 H 102 H 103 H Respiratory Rate 20 22 H 18 Blood Pressure 140/77 H 128/70 123/75 O2 Sat by Pulse Oximetry 97 98 100 11/27/20 06:15 11/27/20 06:30 11/27/20 06:45 Pulse Rate 101 H 98 99 Respiratory Rate 18 25 H 24 H Blood Pressure 124/74 118/69 130/70 O2 Sat by Pulse Oximetry 97 97 97 11/27/20 07:00 11/27/20 07:15 11/27/20 07:30 Pulse Rate 109 H 106 H 108 H Respiratory Rate 19 22 H 13 Blood Pressure 142/70 H 131/74 133/77 O2 Sat by Pulse Oximetry 100 100 100 11/27/20 07:45 11/27/20 08:00 11/27/20 08:15 Pulse Rate 111 H 112 H 103 H Respiratory Rate 19 21 H 22 H Blood Pressure 131/76 121/62 124/72 O2 Sat by Pulse Oximetry 97 100 96 11/27/20 08:30 11/27/20 08:45 11/27/20 09:00 Pulse Rate 106 H 104 H 102 H Respiratory Rate 22 H 22 H 21 H Blood Pressure 121/68 127/73 114/70 O2 Sat by Pulse Oximetry 98 97 96 11/27/20 09:15 11/27/20 09:30 11/27/20 09:45 Pulse Rate 106 H 111 H 107 H Respiratory Rate 23 H 20 23 H Blood Pressure 128/71 134/72 126/72 O2 Sat by Pulse Oximetry 99 98 99 11/27/20 10:00 11/27/20 10:15 11/27/20 10:30 Pulse Rate 109 H 111 H 102 H Respiratory Rate 20 25 H 27 H Blood Pressure 149/79 H 131/69 116/49 O2 Sat by Pulse Oximetry 100 98 97 - Progress/Reassessment Progress Note-Subjective: 11/27/20 10:[address] Lara at 9:00 this morning and she felt she needed venous pH since we could not get ABGs on the patient. I got a venous pH and call Dr. Lara back around 10 AM she felt since the pH was not acidotic and that we could transition her to subcutaneous insulin and did not need to send her. I talked with Dr. Woodall and he felt that since the patient's gap was not closed we could not stop her insulin drip. I called [facility] and they felt that with the patient's improvement in the ER overnight that by the time she arrived there her gap would be closed and there would be no need for transfer. I then talked again with the cold mill supervisor and she did find some staffing for today to manage the insulin drip since it would not be a long-term issue. I talked with Dr. Woodall again and he did agree to accept the patient on the insulin drip. Patient continued to sleep and was a little bit restless at times. Bart Oliver DO, FAAFP
[2020-11-27 00:10] LABS: Troponin I Less than 0.017 ng/mL (0.00-0.10)
[2020-11-27 00:16] LABS: Anion Gap 40.7 mmol/L (6.8-13.8); CK Total * 123 U/L (0-259); CKMB 2.1 ng/mL (0.0-9.0); Carbon Dioxide 5.3 mmol/L (24-32.6); Chloride 93 mmol/L (97-106); Sodium 136 mmol/L (132-142)
[2020-11-27] MEDS ORDERED: NORMAL SALINE 1,000 ML IV ONE ×3 (00:21→12:06)
[2020-11-27 00:30] LABS: Atypical (Reactive) Lymph 1 % (0-2); Band 3 % (0-2.0); Immature Granulocyte 2 (0-1); Lymphocyte 7 % (20-51); Monocyte 1 % (0-9); Neutrophil 86 % (42-75); Neutrophil # 15.6 K/mm3 (1.3-6.0)
[2020-11-27] MEDS ORDERED: LORazepam 2 MG/ML DISP.SYRIN IV ONE ×4 (00:36→17:15)
[2020-11-27] MEDS ORDERED: POTASSIUM CHLORIDE 40 MEQ in NORMAL SALINE 1,000 ML IV SCH (00:45)
[2020-11-27] MEDS: INSULIN REGULAR, HUMAN 100 UNITS in NORMAL SALINE 100 ML IV PRN ×4 (01:08→11:38)
[2020-11-27 01:33] LABS: Anion Gap 40.7 mmol/L (6.8-13.8); Carbon Dioxide 5.3 mmol/L (24-32.6)
[2020-11-27 01:40] LABS: Albumin * 2.6 gm/dl (3.4-5.0); BUN/Creatinine Ratio 38.5 (9.0-21.6); Bilirubin, Total 0.7 mg/dL (0.0-1.1); Ca. Corrected For Albumin 9.4 mg/dL (8.4-10.2); Calcium * 8.6 mg/dL (7.9-10.9); Total Protein 6.7 gm/dL (6.2-8.2)
[2020-11-27 03:16] LABS: Albumin * 2.6 gm/dl (3.4-5.0); Anion Gap 33.5 mmol/L (6.8-13.8); BUN/Creatinine Ratio 40.6 (9.0-21.6); Bilirubin, Total 0.7 mg/dL (0.0-1.1); Ca. Corrected For Albumin 9.4 mg/dL (8.4-10.2); Calcium * 8.6 mg/dL (7.9-10.9); Carbon Dioxide 8.5 mmol/L (24-32.6); Total Protein 6.1 gm/dL (6.2-8.2)
[2020-11-27 04:46] LABS: Albumin * 2.6 gm/dl (3.4-5.0); Anion Gap 29.7 mmol/L (6.8-13.8); BUN/Creatinine Ratio 40.5 (9.0-21.6); Bilirubin, Total 0.7 mg/dL (0.0-1.1); Ca. Corrected For Albumin 9.5 mg/dL (8.4-10.2); Calcium * 8.7 mg/dL (7.9-10.9); Carbon Dioxide 11.3 mmol/L (24-32.6); Total Protein 6.7 gm/dL (6.2-8.2)
[2020-11-27 06:21] LABS: Albumin * 2.5 gm/dl (3.4-5.0); Anion Gap 25.2 mmol/L (6.8-13.8); BUN/Creatinine Ratio 37.8 (9.0-21.6); Bilirubin, Total 0.7 mg/dL (0.0-1.1); Ca. Corrected For Albumin 9.5 mg/dL (8.4-10.2); Calcium * 8.6 mg/dL (7.9-10.9); Carbon Dioxide 14.5 mmol/L (24-32.6); Potassium 2.7 mmol/L (3.4-4.6); Total Protein 6.4 gm/dL (6.2-8.2)
[2020-11-27] MEDS ORDERED: POTASSIUM CHLORIDE 20 MEQ TABLET.SA PO ONE (07:48)
[2020-11-27 08:03] LABS: Albumin * 2.6 gm/dl (3.4-5.0); Anion Gap 22.4 mmol/L (6.8-13.8); BUN/Creatinine Ratio 34.3 (9.0-21.6); Bilirubin, Total 0.7 mg/dL (0.0-1.1); Ca. Corrected For Albumin 9.5 mg/dL (8.4-10.2); Calcium * 8.7 mg/dL (7.9-10.9); Carbon Dioxide 17.2 mmol/L (24-32.6); Potassium 2.6 mmol/L (3.4-4.6); Total Protein 6.5 gm/dL (6.2-8.2)
[2020-11-27 09:36] LABS: Albumin * 2.5 gm/dl (3.4-5.0); Anion Gap 18.5 mmol/L (6.8-13.8); BUN/Creatinine Ratio 33.9 (9.0-21.6); Bilirubin, Total 0.6 mg/dL (0.0-1.1); Ca. Corrected For Albumin 9.7 mg/dL (8.4-10.2); Calcium * 8.8 mg/dL (7.9-10.9); Carbon Dioxide 19.1 mmol/L (24-32.6); Potassium 2.6 mmol/L (3.4-4.6); Total Protein 6.3 gm/dL (6.2-8.2)
[2020-11-27 11:55] LABS: Anion Gap 21.7 mmol/L (6.8-13.8); Calcium * 8.8 mg/dL (7.9-10.9); Estimated Creat Clear 58.2; Potassium 3.7 mmol/L (3.4-4.6)
[2020-11-27] MEDS ORDERED: ONDANSETRON 4 MG TAB.RAPDIS PO PRN (13:18)
[2020-11-27] MEDS ORDERED: ENOXAPARIN SODIUM 40 MG/0.4 ML SYRG SC SCH (13:30)
--- NOTE | 2020-11-27 13:30 | HP ---
Chief Complaint - Chief Complaint Date of Service: 11/27/20 Time of Service: 13:30 Chief Complaint: Hyperglycemic, ketotic, altered mental status History of Present Illness: 40-year-old female with poorly controlled diabetes presented to the ER last night after a vomiting spell which she has routinely. Boyfriend was with her at the time. Unable to get history from patient as she is currently altered and restless. When she first got to the floor and I looked at her, patient was somnolent and had just received some Ativan in the ER not long before. I was unable to perform a complete review of her medical history. Boyfriend was at bedside he said that she is never acted like this before and this was new to her. Reviewed lab work which showed her to still have a slight gap and to be slightly low on her CO2 but otherwise her potassium was in appropriate range and she appeared to be stable on her electrolytes. She had an elevated white count 18.1 in the ER. When she got to the floor we continued her insulin drip which started in the ER. Tox screen was positive for marijuana. No other work-up initiated in the ER to evaluate her altered mental status. I was called roughly 2 hours after she was on the floor and has to come look at her as both the nurses were required to sit with her and hold that her arms. We ordered soft nonviolent restraints. CT scanned her brain which came back negative. Patient did receive a dose of Lovenox so she cannot have a lumbar tap until roughly 2:00 this next morning. Since she is been here patient has been extremely altered and restless. Blood cultures pending. She has been afebrile and her vital signs have been stable aside from some elevated blood pressures but allowing her pressures run in case she has had a stroke. Medical History (Last Reviewed 11/27/20 @ 14:02 by Suzette Henry RN) Cyclical vomiting Hx of diabetes mellitus type 2 Hx of essential hypertension Hypercholesteremia Neuropathy Surgical History: Surgical History (Last Reviewed 11/27/20 @ 14:03 by Suzette Henry RN) History of ankle surgery Family History: Family History (Last Reviewed 11/27/20 @ 14:03 by Suzette Henry RN) Other No pertinent family history Social History: (Last Reviewed 11/27/20 @ 14:03 by Suzette Henry RN) Social History: adopted: No Marital status: Single lives independently: Yes household members: significant other number of children: 0 parent marital status: umarried, living together current occupational status: unemployed Highest level of school completed/degree received: high school graduate Tobacco: Smoking Status: Never smoker Alcohol: alcohol intake: never Substance Use: substance use type: marijuana details: states she hasn't used for 2 weeks Dietary Habits: caffeine: No Review Of Systems (GEN) - Review of Systems Additional Comments: Unable to obtain Immunizations: IMMUNIZATION HX Immunizations Up to Date Yes History of Influenza Vaccine No Hx Pneumococcal Vaccination No Allergies/Adverse Reactions: Allergies Allergy/AdvReac Type Severity Reaction Status Date / Time No Known Allergies Allergy Verified 11/27/20 14:03 Home Medications: HOME MEDICATIONS Blood Sugar Diagnostic [Test Strips] 1 ea MC QID #1 bottle 01/15/20 [Last Taken Unknown] Lisinopril 20 mg PO DAILY #30 tab 01/15/20 [Last Taken Unknown] amLODIPine BESYLATE [Norvasc] 5 mg PO DAILY #30 tab 01/15/20 [Last Taken Unknown] glipiZIDE [Glipizide] 10 mg PO BID #60 tab 01/15/20 [Last Taken Unknown] metFORMIN HCL [Metformin HCl ER] 500 mg PO BID #60 tab.er.24h 01/15/20 [Last Taken Unknown] Gabapentin 300 mg PO TID 10/19/20 [Last Taken Unknown] Promethazine HCl [Phenergan] 25 mg PO QID PRN #10 tab 10/19/20 [Last Taken Unknown] Acyclovir [Zovirax] 400 mg PO TID PRN 11/27/20 [Last Taken Unknown] HYDROcodone/ACETAMINOPHEN [Hydrocodon-Acetaminophen 5-325] 1 ea PO Q4H PRN 11/27/20 [Last Taken Unknown] Insulin Aspart [Novolog Flexpen] 10 unit SQ BIDAC 11/27/20 [Last Taken Unknown] Insulin Glargine,Hum.rec.anlog [Lantus Solostar] 50 unit SQ .QPM 11/27/20 [Last Taken Unknown] Insulin Glargine,Hum.rec.anlog [Lantus Solostar] 55 unit SQ .QAM 11/27/20 [Last Taken Unknown] Ketorolac Tromethamine 10 mg PO QID PRN 11/27/20 [Last Taken Unknown] Metoclopramide HCl [Reglan] 10 mg PO QID 11/27/20 [Last Taken Unknown] Nortriptyline HCl 50 mg PO HS 11/27/20 [Last Taken Unknown] hydrOXYzine HCL [Atarax] 10 mg PO QID PRN 11/27/20 [Last Taken Unknown] Exam - Exam Vital Signs: Vital Signs - Last Taken Temp 36.2 C 11/26/20 23:04 Pulse 108 H 11/27/20 11:45 Resp 12 11/27/20 11:45 BP 162/91 H 11/27/20 11:45 Pulse Ox 97 11/27/20 11:45 Constitutional: Present: Lethargic, Somnolent, Obese Eye Exam: bilateral eye: normal inspection, EOMI, abnormal pupil - Dilated pupils Respiratory: Present: lungs clear, normal breath sounds Cardiovascular/Chest: Present: regular rate, rhythm, no murmur Abdomen: Present: soft, nontender, nondistended Skin Exam: Present: normal color, warm/dry Neurologic: Present: other - Unable to obtain due to altered mental status. Absent: facial droop Diagnostic Studies: Abnormal Lab Results 11/26/20 11/26/20 11/26/20 Range/Units 23:45 23:45 23:45 WBC 18.1 H D (4.0-10.5) K/mm3 RBC 3.88 L (4.2-5.4) M/mm3 Hgb 11.9 L (12.5-16.0) gm/dL MCHC 31.8 L (32-36) g/dl Neutrophils % (Manual) 86 H (42-75) % Band Neuts % (Manual) 3 H (0-2.0) % Lymphocytes % (Manual) 7 L (20-51) % Immature Granulocytes 2 H (0-1) Neutrophils # (Manual) 15.6 H (1.3-6.0) K/mm3 Lymphocytes # (Manual) 1.3 L (1.5-3.5) k/mm3 VBG pH (7.32-7.43) Sodium (132-142) mmol/L Plasma Sodium 147 H (130-142) mmol/L Potassium 3.0 L 3.0 L (3.4-4.6) mmol/L Chloride 93 L 93 L (97-106) mmol/L Carbon Dioxide 5.3 L 5.3 L (24-32.6) mmol/L Anion Gap 40.7 H 40.7 H (6.8-13.8) mmol/L BUN 60 H (3-23) mg/dL Creatinine 1.56 H D (0.4-1.4) mg/dL Est GFR (Non-Af Amer) 39 L D (60-130) mL/min BUN/Creatinine Ratio 38.5 H (9.0-21.6) Random Glucose 815 H (70-110) mg/dL Total Protein (6.2-8.2) gm/dL Albumin 2.6 L (3.4-5.0) gm/dl Serum Ketones Positive - 80mg/dl H (NEGATIVE) 11/27/20 11/27/20 11/27/20 Range/Units 02:45 04:30 06:05 WBC (4.0-10.5) K/mm3 RBC (4.2-5.4) M/mm3 Hgb (12.5-16.0) gm/dL MCHC (32-36) g/dl Neutrophils % (Manual) (42-75) % Band Neuts % (Manual) (0-2.0) % Lymphocytes % (Manual) (20-51) % Immature Granulocytes (0-1) Neutrophils # (Manual) (1.3-6.0) K/mm3 Lymphocytes # (Manual) (1.5-3.5) k/mm3 VBG pH (7.32-7.43) Sodium 143 H 143 H 145 H (132-142) mmol/L Plasma Sodium 150 H 149 H 150 H (130-142) mmol/L Potassium 3.0 L 3.0 L 2.7 L (3.4-4.6) mmol/L Chloride 108 H (97-106) mmol/L Carbon Dioxide 8.5 L 11.3 L 14.5 L (24-32.6) mmol/L Anion Gap 33.5 H 29.7 H 25.2 H (6.8-13.8) mmol/L BUN 54 H 51 H 48 H (3-23) mg/dL Creatinine (0.4-1.4) mg/dL Est GFR (Non-Af Amer) 47 L D 51 L 50 L (60-130) mL/min BUN/Creatinine Ratio 40.6 H 40.5 H 37.8 H (9.0-21.6) Random Glucose 542 H D 474 H 406 H (70-110) mg/dL Total Protein 6.1 L (6.2-8.2) gm/dL Albumin 2.6 L 2.6 L 2.5 L (3.4-5.0) gm/dl Serum Ketones (NEGATIVE) 11/27/20 11/27/20 11/27/20 Range/Units 07:46 09:18 09:18 WBC (4.0-10.5) K/mm3 RBC (4.2-5.4) M/mm3 Hgb (12.5-16.0) gm/dL MCHC (32-36) g/dl Neutrophils % (Manual) (42-75) % Band Neuts % (Manual) (0-2.0) % Lymphocytes % (Manual) (20-51) % Immature Granulocytes (0-1) Neutrophils # (Manual) (1.3-6.0) K/mm3 Lymphocytes # (Manual) (1.5-3.5) k/mm3 VBG pH 7.486 H (7.32-7.43) Sodium 146 H 148 H (132-142) mmol/L Plasma Sodium 150 H 151 H (130-142) mmol/L Potassium 2.6 L 2.6 L (3.4-4.6) mmol/L Chloride 109 H 113 H (97-106) mmol/L Carbon Dioxide 17.2 L 19.1 L (24-32.6) mmol/L Anion Gap 22.4 H 18.5 H (6.8-13.8) mmol/L BUN 46 H 41 H (3-23) mg/dL Creatinine (0.4-1.4) mg/dL Est GFR (Non-Af Amer) 47 L 53 L (60-130) mL/min BUN/Creatinine Ratio 34.3 H 33.9 H (9.0-21.6) Random Glucose 355 H 269 H (70-110) mg/dL Total Protein (6.2-8.2) gm/dL Albumin 2.6 L 2.5 L (3.4-5.0) gm/dl Serum Ketones (NEGATIVE) 11/27/20 Range/Units 11:36 WBC (4.0-10.5) K/mm3 RBC (4.2-5.4) M/mm3 Hgb (12.5-16.0) gm/dL MCHC (32-36) g/dl Neutrophils % (Manual) (42-75) % Band Neuts % (Manual) (0-2.0) % Lymphocytes % (Manual) (20-51) % Immature Granulocytes (0-1) Neutrophils # (Manual) (1.3-6.0) K/mm3 Lymphocytes # (Manual) (1.5-3.5) k/mm3 VBG pH (7.32-7.43) Sodium 145 H (132-142) mmol/L Plasma Sodium 148 H (130-142) mmol/L Potassium (3.4-4.6) mmol/L Chloride 112 H (97-106) mmol/L Carbon Dioxide 15.0 L (24-32.6) mmol/L Anion Gap 21.7 H (6.8-13.8) mmol/L BUN 41 H (3-23) mg/dL Creatinine (0.4-1.4) mg/dL Est GFR (Non-Af Amer) 57 L (60-130) mL/min BUN/Creatinine Ratio 36.0 H (9.0-21.6) Random Glucose 257 H (70-110) mg/dL Total Protein (6.2-8.2) gm/dL Albumin (3.4-5.0) gm/dl Serum Ketones (NEGATIVE) Laboratory Results WBC 18.1 K/mm3 (4.0-10.5) H D 11/26/20 23:45 RBC 3.88 M/mm3 (4.2-5.4) L 11/26/20 23:45 Hgb 11.9 gm/dL (12.5-16.0) L 11/26/20 23:45 Hct 37.4 % (37.0-47.0) 11/26/20 23:45 MCV 96.4 fl (78-100) 11/26/20 23:45 MCH 30.7 pg (27-31) 11/26/20 23:45 MCHC 31.8 g/dl (32-36) L 11/26/20 23:45 RDW 12.5 % (11.5-14.0) 11/26/20 23:45 Plt Count 366 K/mm3 (150-450) 11/26/20 23:45 MPV 11.1 fl (8-12.5) 11/26/20 23:45 Neutrophils % (Manual) 86 % (42-75) H 11/26/20 23:45 Band Neuts % (Manual) 3 % (0-2.0) H 11/26/20 23:45 Lymphocytes % (Manual) 7 % (20-51) L 11/26/20 23:45 Monocytes % (Manual) 1 % (0-9) 11/26/20 23:45 Immature Granulocytes 2 (0-1) H 11/26/20 23:45 Neutrophils # (Manual) 15.6 K/mm3 (1.3-6.0) H 11/26/20 23:45 Lymphocytes # (Manual) 1.3 k/mm3 (1.5-3.5) L 11/26/20 23:45 Monocytes # (Manual) 0.2 k/mm3 (0.0-1.0) 11/26/20 23:45 Atypic/Reactive Lymphs 1 % (0-2) 11/26/20 23:45 VBG pH 7.486 (7.32-7.43) H 11/27/20 09:18 Sodium 145 mmol/L (132-142) H 11/27/20 11:36 Plasma Sodium 148 mmol/L (130-142) H 11/27/20 11:36 Potassium 3.7 mmol/L (3.4-4.6) D 11/27/20 11:36 Chloride 112 mmol/L (97-106) H 11/27/20 11:36 Carbon Dioxide 15.0 mmol/L (24-32.6) L 11/27/20 11:36 Anion Gap 21.7 mmol/L (6.8-13.8) H 11/27/20 11:36 BUN 41 mg/dL (3-23) H 11/27/20 11:36 Creatinine 1.14 mg/dL (0.4-1.4) 11/27/20 11:36 Est GFR (Non-Af Amer) 57 mL/min (60-130) L 11/27/20 11:36 BUN/Creatinine Ratio 36.0 (9.0-21.6) H 11/27/20 11:36 Random Glucose 257 mg/dL (70-110) H 11/27/20 11:36 Lactic Acid, Venous 1.5 mmol/L (0.4-2.0) 11/26/20 23:45 Calcium 8.8 mg/dL (7.9-10.9) 11/27/20 11:36 Calcium Adj for Albumin 9.7 mg/dL (8.4-10.2) 11/27/20 09:18 Total Bilirubin 0.6 mg/dL (0.0-1.1) 11/27/20 09:18 AST 11 U/L (0-48) 11/27/20 09:18 ALT 19 U/L (19-67) 11/27/20 09:18 Alkaline Phosphatase 99 U/L (50-170) 11/27/20 09:18 Creatine Kinase 123 U/L (0-259) 11/26/20 23:45 CK-MB (CK-2) 2.1 ng/mL (0.0-9.0) 11/26/20 23:45 CK-MB (CK-2) Rel Index 1.7 (0.0-3.6) 11/26/20 23:45 Troponin I Less than 0.017 ng/mL (0.00-0.10) 11/26/20 23:45 Total Protein 6.3 gm/dL (6.2-8.2) 11/27/20 09:18 Albumin 2.5 gm/dl (3.4-5.0) L 11/27/20 09:18 Serum Ketones Positive - 80mg/dl (NEGATIVE) H 11/26/20 23:45 SARS-CoV-2 (PCR) Not detected (NotDetected) 11/27/20 10:48 Assessment/Plan - Narrative Narrative: 40-year-old female came to the ER after having severe cyclic vomiting syndrome episode. Brought in by her boyfriend. I was unable to get much of a history other than she has been vomiting for last few days. She has had issues with hyperglycemia secondary to poor diabetic control and ketosis in the past but has never been altered. While in the ER patient was found to be fairly altered which was not checked out to me, patient had to be soft restrained and given Ativan to keep her calm while there. When I received the call for admission, I was told that she was just about out of her hyperglycemic state and her gap was just about closed. She was not acidotic. Initial report stated that she would be okay to go on subcu insulin and allow to advance her diet. After I explained to the ER doctor that she needed to stay on an insulin drip until her gap was closed and that she needed to be somewhere so she could be treated appropriately. At the time of initial call, we did not have the appropriate nursing staff to manage an insulin drip. Additional nursing was called in and so she was admitted for hyperglycemia and ketosis while on an insulin drip. She was given a dose of Lovenox due to body weight for DVT prophylaxis. It was not known to me at the time that she had been is altered and she had no work-up in the ER. I was called roughly 2 hours after she got to the floor and told that 2 nurses had to sit with her and hold her arms down to keep her from ripping out her IVs and Saha catheter. Patient unable to respond to questions or give any kind of history due to her altered mental status. She is restless and acting intoxicated. Tox screen positive for marijuana only. She did have an elevated white count at 18.1. Blood cultures have been ordered. Unable to get a lumbar puncture due to Lovenox. CT scan of the brain did not show any acute pathology. Unable to get an MRI of her brain today due to our facility limitations. While here her vital signs have been stable aside from some elevated blood pressures. Allowing her blood pressure to run at this time due to concern for possible stroke which cannot be ruled out until we get a brain MRI. High was systolically in the 170s. Recent CHEM panel showed her to be hyponatremic at 152 and. Hypokalemic at 2.9. Patient's gap was 15.4 most recently, with a CO2 of 21.5. These are improvements compared to when she got to the floor. Her sugars are also much better controlled. This does not explain why she is so altered. Patient currently in soft restraints to keep her son from harming herself and repeat her lines and Saha catheter. Patient currently is n.p.o. Patient currently is on D5 half-normal saline with 40 meq with her insulin drip around the 8 units/h. Last sugar was 131. Currently trying to transfer patient as I feel she needs neurology and my ability to work up her altered mental status right now is limited. All of her current medications are being held due to being n.p.o. Lovenox has been stopped in case she can be transferred, can do the LP early in the a.m. Holding antibiotics at this time due as I cannot confirm the need for them right now. She is afebrile. She has no nuchal rigidity as far as I can tell. Nurse to call questions or concerns, will continue DKA protocol until gap is completely closed and CO2 his within normal limits. - Assessment/Plan (1) Altered mental status Problem: Acute (2) Ketotic hyperglycinemia Problem: Acute (3) Tetrahydrocannabinol (THC) use disorder, moderate, dependence Problem: Chronic (4) Hypertension Problem: Chronic Qualifiers: Hypertension type: essential hypertension Qualified Code(s): I10 - Essential (primary) hypertension (5) Diabetes Problem: Chronic Qualifiers: Diabetes mellitus type: type 2 Diabetes mellitus emt intermediate insulin use: with emt intermediate use Diabetes mellitus complication status: without complication Qualified Code(s): E11.9 - Type 2 diabetes mellitus without complications; Z79.4 - MCC (current) use of insulin Date and Time of Evaluation: 11/27/20 17:20 11/27/20 18:23 Evaluation Type: Initial (1) Altered mental status Problem: Acute (2) Ketotic hyperglycinemia Problem: Acute (3) Tetrahydrocannabinol (THC) use disorder, moderate, dependence Problem: Acute (4) Hypertension Problem: Chronic Qualifiers: Hypertension type: essential hypertension Qualified Code(s): I10 - Essential (primary) hypertension (5) Diabetes Problem: Chronic Qualifiers: Diabetes mellitus type: type 2 Diabetes mellitus intermediate insulin use: with emt intermediate use Diabetes mellitus complication status: without complication Qualified Code(s): E11.9 - Type 2 diabetes mellitus without complications; Z79.4 - MCC (current) use of insulin Evaluation of the patient's immediate situation:: Patient came over from the ER around 130 this afternoon, was mildly sedated in appearance and was not responsive to questions. I thought this was due to receiving Ativan in the ER. this should have worn off and the patient remained agitated, 2 nurses had to sit with her to hold her arms down to keep her from ripping out her lines and her Saha catheter. She was not responding to questions appropriately. After reviewing patient's ER record extensively, the ER provider also had to use soft restraints on her. None of this was checked out to me and so I am surprised by her behavior and the way she is acting. Her gap is much better, her CO2 is much better, her labs are much improving though she still hypernatremic and slightly hypokalemic. Her altered mental status and encephalopathy cannot be explained by her ketotic and hyperglycemic state. Last pH was 7.4 (venous) so I think there is another cause for altered mental status. Patient placed in soft restraints at this time due to patient's risk of hurting herself and ripping out her lines which are needed to continue to treat her. Patient is minimally alert but protecting her airway and is restless in bed. Restraint - Indication for Use: Behavior that is harmful, Unable to Follow Instruct, Placement/Patency of line Behavioral Assessment: Agitated, Combative Continue Restraints: Yes
[2020-11-27] MEDS ORDERED: POTASSIUM CHLORIDE 20 MEQ in DEXTROSE 5%-0.5 NORMAL SALINE 990 ML IV SCH (13:45)
[2020-11-27 13:52] LABS: Albumin * 2.5 gm/dl (3.4-5.0); Bilirubin, Total 0.5 mg/dL (0.0-1.1); Ca. Corrected For Albumin 9.5 mg/dL (8.4-10.2); Calcium * 8.6 mg/dL (7.9-10.9); Carbon Dioxide 19.9 mmol/L (24-32.6); Potassium 2.9 mmol/L (3.4-4.6); Total Protein 6.2 gm/dL (6.2-8.2)
[2020-11-27 14:04] LABS: Cocaine Ur Negative (NEGATIVE); Urine Barbiturate Negative (NEGATIVE); Urine Benzodiazepines Negative (NEGATIVE); Urine Opiates Negative (NEGATIVE); Urine PCP Negative (NEGATIVE)
[2020-11-27 14:11] LABS: Urine THC Positive (NEGATIVE)
[2020-11-27 16:29] LABS: Anion Gap 15.6 mmol/L (6.8-13.8); BUN/Creatinine Ratio 30.8 (9.0-21.6); Calcium * 8.8 mg/dL (7.9-10.9); Carbon Dioxide 21.3 mmol/L (24-32.6); Estimated Creat Clear 61.6; Potassium 2.9 mmol/L (3.4-4.6)
[2020-11-27] MEDS ORDERED: METOCLOPRAMIDE HCL 5 MG TABLET PO SCH (17:00)
[2020-11-27] MEDS ORDERED: GABAPENTIN 100 MG CAPSULE PO SCH (17:00)
[2020-11-27] MEDS ORDERED: LORazepam 2 MG/ML DISP.SYRIN ONE (17:06)
[2020-11-27 18:26] LABS: Anion Gap 15.4 mmol/L (6.8-13.8); Blood Urea Nitrogen 30 mg/dL (3-23); Calcium * 8.9 mg/dL (7.9-10.9); Carbon Dioxide 21.5 mmol/L (24-32.6); Chloride 118 mmol/L (97-106); Estimated Creat Clear 61.6; Glucose * 131 mg/dL (70-110); Potassium 2.9 mmol/L (3.4-4.6); Sodium 152 mmol/L (132-142)
[2020-11-27] MEDS ORDERED: POTASSIUM CHLORIDE 40 MEQ in DEXTROSE 5%-0.5 NORMAL SALINE 1,000 ML IV SCH (19:10)
[2020-11-27] MEDS ORDERED: MAGNESIUM SULFATE IN WATER 50 ML IV ONE (19:20)
--- NOTE | 2020-11-27 19:29 | DS ---
Transfer Discharge Summary - Diagnosis(s)/Problems (1) Altered mental status Problem: Acute (2) Ketotic hyperglycinemia Problem: Acute (3) Tetrahydrocannabinol (THC) use disorder, moderate, dependence Problem: Chronic (4) Hypertension Problem: Chronic (5) Diabetes Problem: Chronic - Course Description of Stay: 40-year-old female came to the ER after having severe cyclic vomiting syndrome episode. Brought in by her boyfriend. I was unable to get much of a history other than she has been vomiting for last few days. She has had issues with hyperglycemia secondary to poor diabetic control and ketosis in the past but has never been altered. While in the ER patient was found to be fairly altered which was not checked out to me, patient had to be soft restrained and given Ativan to keep her calm while there. When I received the call for admission, I was told that she was just about out of her hyperglycemic state and her gap was just about closed. She was not acidotic. Initial report stated that she would be okay to go on subcu insulin and allow to advance her diet. After I explained to the ER doctor that she needed to stay on an insulin drip until her gap was closed and that she needed to be somewhere so she could be treated appropriately. At the time of initial call, we did not have the appropriate nursing staff to manage an insulin drip. Additional nursing was called in and so she was admitted for hyperglycemia and ketosis while on an insulin drip. She was given a dose of Lovenox due to body weight for DVT prophylaxis. It was not known to me at the time that she had been is altered and she had no work-up in the ER. I was called roughly 2 hours after she got to the floor and told that 2 nurses had to sit with her and hold her arms down to keep her from ripping out her IVs and Saha catheter. Patient unable to respond to questions or give any kind of history due to her altered mental status. She is restless and acting intoxicated. Tox screen positive for marijuana only. Boyfriend denies alcohol use. she did have an elevated white count at 18.1. Blood cultures have been ordered. Unable to get a lumbar puncture due to Lovenox. CT scan of the brain did not show any acute pathology. Unable to get an MRI of her brain today due to our facility limitations. While here her vital signs have been stable aside from some elevated blood pressures. Allowing her blood pressure to run at this time due to concern for possible stroke which cannot be ruled out until we get a brain MRI. High was systolically in the 170s. Recent CHEM panel showed her to be hyponatremic at 152 and. Hypokalemic at 2.9. Patient's gap was 15.4 most recently, with a CO2 of 21.5. These are improvements compared to when she got to the floor. Her sugars are also much better controlled. This does not explain why she is so altered. Patient currently in soft restraints to keep her son from harming herself and repeat her lines and Saha catheter. Patient currently is n.p.o. Patient currently is on D5 half-normal saline with 40 meq with her insulin drip around the 8 units/h. Last sugar was 131. Currently trying to transfer patient as I feel she needs neurology and my ability to work up her altered mental status right now is limited. All of her current medications are being held due to being n.p.o. Lovenox has been stopped in case she can be transferred, can do the LP early in the a.m. Holding antibiotics at this time due as I cannot confirm the need for them right now. She is afebrile. She has no nuchal rigidity as far as I can tell. Patient has been accepted to [facility] for transfer. Patient needs neurology and further work-up which cannot be provided here at [facility]. Procedures Performed: none - Results and Findings Results and Findings: Laboratory Results - last 24 hr 11/26/20 11/26/20 11/26/20 23:45 23:45 23:45 WBC 18.1 H D RBC 3.88 L Hgb 11.9 L Hct 37.4 MCV 96.4 MCH 30.7 MCHC 31.8 L RDW 12.5 Plt Count 366 MPV 11.1 Neutrophils % (Manual) 86 H Band Neuts % (Manual) 3 H Lymphocytes % (Manual) 7 L Monocytes % (Manual) 1 Immature Granulocytes 2 H Neutrophils # (Manual) 15.6 H Lymphocytes # (Manual) 1.3 L Monocytes # (Manual) 0.2 Atypic/Reactive Lymphs 1 VBG pH Sodium 136 Plasma Sodium Potassium 3.0 L Chloride 93 L Carbon Dioxide 5.3 L Anion Gap 40.7 H BUN Creatinine Est GFR (Non-Af Amer) BUN/Creatinine Ratio Random Glucose Lactic Acid, Venous 1.5 Calcium Calcium Adj for Albumin Total Bilirubin AST ALT Alkaline Phosphatase Creatine Kinase 123 CK-MB (CK-2) 2.1 CK-MB (CK-2) Rel Index 1.7 Troponin I Less than 0.017 Total Protein Albumin Urine Opiates Screen Barbiturate Screen Ur Phencyclidine Scrn Urine Amphetamine U Benzodiazepines Scrn Urine Cocaine Screen Urine Marijuana (THC) Serum Ketones Positive - 80mg/dl H SARS-CoV-2 (PCR) 11/26/20 11/27/20 11/27/20 23:45 00:10 02:45 WBC RBC Hgb Hct MCV MCH MCHC RDW Plt Count MPV Neutrophils % (Manual) Band Neuts % (Manual) Lymphocytes % (Manual) Monocytes % (Manual) Immature Granulocytes Neutrophils # (Manual) Lymphocytes # (Manual) Monocytes # (Manual) Atypic/Reactive Lymphs VBG pH Sodium 136 143 H Plasma Sodium 147 H 150 H Potassium 3.0 L 3.0 L Chloride 93 L 104 Carbon Dioxide 5.3 L 8.5 L Anion Gap 40.7 H 33.5 H BUN 60 H 54 H Creatinine 1.56 H D 1.33 Est GFR (Non-Af Amer) 39 L D 47 L D BUN/Creatinine Ratio 38.5 H 40.6 H Random Glucose 815 H 542 H D Lactic Acid, Venous Calcium 8.6 8.6 Calcium Adj for Albumin 9.4 9.4 Total Bilirubin 0.7 0.7 AST 13 12 ALT 22 21 Alkaline Phosphatase 110 104 Creatine Kinase CK-MB (CK-2) CK-MB (CK-2) Rel Index Troponin I Total Protein 6.7 6.1 L Albumin 2.6 L 2.6 L Urine Opiates Screen Negative Barbiturate Screen Negative Ur Phencyclidine Scrn Negative Urine Amphetamine Negative U Benzodiazepines Scrn Negative Urine Cocaine Screen Negative Urine Marijuana (THC) Positive H Serum Ketones SARS-CoV-2 (PCR) 11/27/20 11/27/20 11/27/20 04:30 06:05 07:46 WBC RBC Hgb Hct MCV MCH MCHC RDW Plt Count MPV Neutrophils % (Manual) Band Neuts % (Manual) Lymphocytes % (Manual) Monocytes % (Manual) Immature Granulocytes Neutrophils # (Manual) Lymphocytes # (Manual) Monocytes # (Manual) Atypic/Reactive Lymphs VBG pH Sodium 143 H 145 H 146 H Plasma Sodium 149 H 150 H 150 H Potassium 3.0 L 2.7 L 2.6 L Chloride 105 108 H 109 H Carbon Dioxide 11.3 L 14.5 L 17.2 L Anion Gap 29.7 H 25.2 H 22.4 H BUN 51 H 48 H 46 H Creatinine 1.26 1.27 1.34 Est GFR (Non-Af Amer) 51 L 50 L 47 L BUN/Creatinine Ratio 40.5 H 37.8 H 34.3 H Random Glucose 474 H 406 H 355 H Lactic Acid, Venous Calcium 8.7 8.6 8.7 Calcium Adj for Albumin 9.5 9.5 9.5 Total Bilirubin 0.7 0.7 0.7 AST 12 11 12 ALT 19 19 21 Alkaline Phosphatase 105 102 102 Creatine Kinase CK-MB (CK-2) CK-MB (CK-2) Rel Index Troponin I Total Protein 6.7 6.4 6.5 Albumin 2.6 L 2.5 L 2.6 L Urine Opiates Screen Barbiturate Screen Ur Phencyclidine Scrn Urine Amphetamine U Benzodiazepines Scrn Urine Cocaine Screen Urine Marijuana (THC) Serum Ketones SARS-CoV-2 (PCR) 11/27/20 11/27/20 11/27/20 09:18 09:18 10:48 WBC RBC Hgb Hct MCV MCH MCHC RDW Plt Count MPV Neutrophils % (Manual) Band Neuts % (Manual) Lymphocytes % (Manual) Monocytes % (Manual) Immature Granulocytes Neutrophils # (Manual) Lymphocytes # (Manual) Monocytes # (Manual) Atypic/Reactive Lymphs VBG pH 7.486 H Sodium 148 H Plasma Sodium 151 H Potassium 2.6 L Chloride 113 H Carbon Dioxide 19.1 L Anion Gap 18.5 H BUN 41 H Creatinine 1.21 Est GFR (Non-Af Amer) 53 L BUN/Creatinine Ratio 33.9 H Random Glucose 269 H Lactic Acid, Venous Calcium 8.8 Calcium Adj for Albumin 9.7 Total Bilirubin 0.6 AST 11 ALT 19 Alkaline Phosphatase 99 Creatine Kinase CK-MB (CK-2) CK-MB (CK-2) Rel Index Troponin I Total Protein 6.3 Albumin 2.5 L Urine Opiates Screen Barbiturate Screen Ur Phencyclidine Scrn Urine Amphetamine U Benzodiazepines Scrn Urine Cocaine Screen Urine Marijuana (THC) Serum Ketones SARS-CoV-2 (PCR) Not detected 11/27/20 11/27/20 11/27/20 11:36 13:36 15:54 WBC RBC Hgb Hct MCV MCH MCHC RDW Plt Count MPV Neutrophils % (Manual) Band Neuts % (Manual) Lymphocytes % (Manual) Monocytes % (Manual) Immature Granulocytes Neutrophils # (Manual) Lymphocytes # (Manual) Monocytes # (Manual) Atypic/Reactive Lymphs VBG pH Sodium 145 H 150 H 152 H Plasma Sodium 148 H 151 H 153 H Potassium 3.7 D 2.9 L D 2.9 L Chloride 112 H 116 H 118 H Carbon Dioxide 15.0 L 19.9 L 21.3 L Anion Gap 21.7 H 17.0 H 15.6 H BUN 41 H 36 H 33 H Creatinine 1.14 1.24 1.07 Est GFR (Non-Af Amer) 57 L 51 L 61 BUN/Creatinine Ratio 36.0 H 29.0 H 30.8 H Random Glucose 257 H 179 H D 157 H Lactic Acid, Venous Calcium 8.8 8.6 8.8 Calcium Adj for Albumin 9.5 Total Bilirubin 0.5 AST 11 ALT 19 Alkaline Phosphatase 94 Creatine Kinase CK-MB (CK-2) CK-MB (CK-2) Rel Index Troponin I Total Protein 6.2 Albumin 2.5 L Urine Opiates Screen Barbiturate Screen Ur Phencyclidine Scrn Urine Amphetamine U Benzodiazepines Scrn Urine Cocaine Screen Urine Marijuana (THC) Serum Ketones SARS-CoV-2 (PCR) 11/27/20 18:06 WBC RBC Hgb Hct MCV MCH MCHC RDW Plt Count MPV Neutrophils % (Manual) Band Neuts % (Manual) Lymphocytes % (Manual) Monocytes % (Manual) Immature Granulocytes Neutrophils # (Manual) Lymphocytes # (Manual) Monocytes # (Manual) Atypic/Reactive Lymphs VBG pH Sodium 152 H Plasma Sodium 152 H Potassium 2.9 L Chloride 118 H Carbon Dioxide 21.5 L Anion Gap 15.4 H BUN 30 H Creatinine 1.07 Est GFR (Non-Af Amer) 61 BUN/Creatinine Ratio 28.0 H Random Glucose 131 H Lactic Acid, Venous Calcium 8.9 Calcium Adj for Albumin Total Bilirubin AST ALT Alkaline Phosphatase Creatine Kinase CK-MB (CK-2) CK-MB (CK-2) Rel Index Troponin I Total Protein Albumin Urine Opiates Screen Barbiturate Screen Ur Phencyclidine Scrn Urine Amphetamine U Benzodiazepines Scrn Urine Cocaine Screen Urine Marijuana (THC) Serum Ketones SARS-CoV-2 (PCR) - Medications Medications: Active Medications Gabapentin (Gabapentin 100 Mg Capsule) 100 mg PO TID ON LICENSE OF [facility] Stop: 12/27/20 17:01 Last Admin: 11/27/20 17:34 Dose: Not Given Documented by: Insulin Human Regular 100 (units/ Sodium Chloride) 101 mls @ 11.009 mls/hr IV TITR PRN; Protocol PRN Reason: Hyperglycemia Stop: 12/27/20 00:20 Last Admin: 11/27/20 11:38 Dose: 0.07 units/kg/hr, 8 mls/hr Documented by: Potassium Chloride 40 meq/ (Dextrose/Sodium Chloride) 1,020 mls @ 200 mls/hr IV .Q5H6M ON LICENSE OF [facility] Stop: 12/27/20 19:11 Last Admin: 11/27/20 19:23 Dose: 200 mls/hr Documented by: Metoclopramide HCl (Metoclopramide Hcl 5 Mg Tablet) 5 mg PO QID ON LICENSE OF [facility] Stop: 12/27/20 17:01 Last Admin: 11/27/20 17:34 Dose: Not Given Documented by: Discontinued Medications Enoxaparin Sodium (Enoxaparin Sodium 40 Mg/0.4 Ml Syrg) 40 mg SC Q24H ON LICENSE OF [facility] Stop: 12/27/20 13:31 Last Admin: 11/27/20 14:25 Dose: 40 mg Documented by: Sodium Chloride (Sodium Chloride 0.9%) 1,000 mls @ 999 mls/hr IV .Q1H1M STA Stop: 11/27/20 00:14 Last Infusion: 11/27/20 00:37 Dose: Infused Documented by: Sodium Chloride (Sodium Chloride 0.9%) 1,000 mls @ 999 mls/hr IV .Q1H1M ONE Stop: 11/27/20 01:21 Last Infusion: 11/27/20 01:38 Dose: Infused Documented by: Potassium Chloride 40 meq/ (Sodium Chloride) 1,020 mls @ 30 mls/hr IV .Q24H LEOBARDO Stop: 12/27/20 00:46 Last Infusion: 11/27/20 12:32 Dose: 0 mls/hr Documented by: Sodium Chloride (Sodium Chloride 0.9%) 1,000 mls @ 999 mls/hr IV .Q1H1M ONE Stop: 11/27/20 02:28 Last Infusion: 11/27/20 02:32 Dose: Infused Documented by: Sodium Chloride (Sodium Chloride 0.9%) 1,000 mls @ 500 mls/hr IV .Q2H ONE Stop: 11/27/20 14:05 Last Infusion: 11/27/20 13:54 Dose: Infused Documented by: Potassium Chloride 20 meq/ (Dextrose/Sodium Chloride) 1,000 mls @ 200 mls/hr IV .Q5H LEOBARDO Stop: 12/27/20 13:46 Last Infusion: 11/27/20 19:03 Dose: Infused Documented by: Insulin Human Regular (Insulin Regular, Human 100 Units/Ml Vial) 10 units IV ONCE ONE Stop: 11/26/20 23:15 Last Admin: 11/26/20 23:30 Dose: 10 units Documented by: Lorazepam (Lorazepam 2 Mg/Ml Disp.Syrin) 1 mg IV ONCE ONE Stop: 11/27/20 00:37 Last Admin: 11/27/20 00:42 Dose: 1 mg Documented by: Lorazepam (Lorazepam 2 Mg/Ml Disp.Syrin) 1 mg IV ONCE ONE Stop: 11/27/20 01:50 Last Admin: 11/27/20 02:06 Dose: 1 mg Documented by: Lorazepam (Lorazepam 2 Mg/Ml Disp.Syrin) 0.5 mg IV ONCE ONE Stop: 11/27/20 14:58 Last Admin: 11/27/20 15:23 Dose: 0.5 mg Documented by: Lorazepam (Lorazepam 2 Mg/Ml Disp.Syrin) 1 mg IV ONCE ONE Stop: 11/27/20 17:16 Last Admin: 11/27/20 17:07 Dose: 1 mg Documented by: Ondansetron HCl (Ondansetron Hcl/Pf 2 Mg/Ml Vial) 8 mg IV ONCE ONE Stop: 11/26/20 23:26 Last Admin: 11/26/20 23:29 Dose: 8 mg Documented by: Potassium Chloride (Potassium Chloride 20 Meq Tablet.Sa) 40 meq PO ONCE ONE Stop: 11/27/20 07:49 Last Admin: 11/27/20 08:04 Dose: 40 meq Documented by: - Disposition Disposition: Short Term Hospital Inpatient Condition: Stable Discharge Date: 11/27/20 Discharge Time: 19:28
[2020-11-27 20:04] LABS: Hemoglobin 11.3 gm/dL (12.5-16.0); Mean Cell Volume 88.9 fl (78-100); Mean Corpuscular Hemoglobin 30.5 pg (27-31); Mean Corpuscular Hgb Conc 34.2 g/dl (32-36); Mean Platelet Volume 10.8 fl (8-12.5); Neutrophil # 10.9 K/mm3 (1.3-6.0); Neutrophil % 77.8 % (42-75.0); Platelet Count 294 K/mm3 (150-450); Red Blood Count 3.71 M/mm3 (4.2-5.4); Red Cell Distribution Width 12.6 % (11.5-14.0); White Blood Count 14.1 K/mm3 (4.0-10.5)
[2020-11-27 20:18] LABS: Anion Gap 16.7 mmol/L (6.8-13.8); BUN/Creatinine Ratio 26.5 (9.0-21.6); Calcium * 8.7 mg/dL (7.9-10.9); Carbon Dioxide 21.1 mmol/L (24-32.6); Estimated Creat Clear 64.6; Potassium 2.8 mmol/L (3.4-4.6)
[2020-11-27 20:36] VITALS: BP 119/59
[2020-11-27] MEDS ORDERED: glipiZIDE 10 MG TABLET PO SCH (21:00)
[2020-11-27] MEDS ORDERED: SIMVASTATIN 5 MG TABLET PO SCH (21:00)
[2020-11-28] MEDS ORDERED: PANTOPRAZOLE SODIUM 20 MG TABLET.DR PO SCH (07:00)
[2020-11-28] MEDS ORDERED: amLODIPine BESYLATE 5 MG TABLET PO SCH (09:00)
== END 2020-11-27 20:54 | disposition short-term general hospital (02) | DRG 638 ==
LOC: ER 23:01 → MS 11-27 12:20
PROVIDERS: ADMIT Family Medicine; ATTEND Family Medicine

== ENCOUNTER 2021-03-12 09:47 | Observation (INO) ==
[2021-03-12] MEDS ORDERED: PROCHLORPERAZINE EDISYLATE 5 MG/ML VIAL IV ONE (09:53)
[2021-03-12] MEDS ORDERED: NORMAL SALINE 1,000 ML IV ONE ×3 (09:53→14:41)
[2021-03-12] MEDS ORDERED: diphenhydrAMINE HCL 50 MG/ML VIAL IV ONE ×2 (09:54→11:46)
[2021-03-12 10:17] LABS: Hematocrit 37.9 % (37.0-47.0); Hemoglobin 12.2 gm/dL (12.5-16.0); Mean Cell Volume 93.3 fl (78-100); Mean Corpuscular Hgb Conc 32.2 g/dl (32-36); Mean Platelet Volume 9.4 fl (8-12.5); Neutrophil # 4.7 K/mm3 (1.3-6.0); Platelet Count 392 K/mm3 (150-450); Red Blood Count 4.06 M/mm3 (4.2-5.4); Red Cell Distribution Width 12.6 % (11.5-14.0); White Blood Count 7.7 K/mm3 (4.0-10.5)
[2021-03-12 10:31] LABS: Albumin * 3.3 gm/dl (3.4-5.0); Anion Gap 12.7 mmol/L (6.8-13.8); BUN/Creatinine Ratio 6.7 (9.0-21.6); Bilirubin, Total 1.1 mg/dL (0.0-1.1); Ca. Corrected For Albumin 9.6 mg/dL (8.4-10.2); Calcium * 9.4 mg/dL (7.9-10.9); Carbon Dioxide 28.1 mmol/L (24-32.6); Potassium 3.8 mmol/L (3.4-4.6)
[2021-03-12 10:53] LABS: Urine Bilirubin 1 mg/dl (NEGATIVE); Urine Blood Negative /ul (NEGATIVE); Urine Ketone 50 mg/dL (NEGATIVE); Urine Nitrite Negative (NEGATIVE); Urine Protein 100 mg/dL (NEGATIVE); Urine Specific Gravity 1.025 SP.GR. (1.005-1.010); Urine Urobilinogen Normal (NORMAL)
[2021-03-12 11:03] LABS: Cocaine Ur Negative (NEGATIVE); Urine Barbiturate Negative (NEGATIVE); Urine Benzodiazepines Negative (NEGATIVE); Urine Opiates Negative (NEGATIVE); Urine PCP Negative (NEGATIVE)
[2021-03-12 11:06] LABS: Urine THC Positive (NEGATIVE)
[2021-03-12 11:19] LABS: Urine Color Yellow
[2021-03-12 11:20] LABS: Urine Appearance Cloudy (CLEAR); Urine Bacteria TRACE; Urine Mucus Few - 1+; Urine RBC None Seen /hpf (0-5); Urine WBC None Seen /hpf (0-5)
[2021-03-12] MEDS ORDERED: KETOROLAC TROMETHAMINE 30 MG/ML VIAL IV ONE (11:46)
[2021-03-12] MEDS ORDERED: METOCLOPRAMIDE HCL 5 MG/ML VIAL IV ONE (11:47)
--- NOTE | 2021-03-12 13:38 | ERNOTE ---
Medical Problem HPI - Narrative Date of Service: 03/12/21 - General Chief Complaint: Nausea/Vomiting Time Seen by Provider: 03/12/21 09:51 Source: patient Exam Limitations: no limitations - Immun/Allergies/Home Medications Immunizations: IMMUNIZATION HX Immunizations Up to Date Yes History of Influenza Vaccine Yes Hx Pneumococcal Vaccination No Allergies/Adverse Reactions: Allergies No Known Allergies Allergy (Verified 11/27/20 14:03) Home Medications: HOME MEDICATIONS Blood Sugar Diagnostic [Test Strips] 1 ea MC QID #1 bottle 01/15/20 [Last Taken Unknown] Lisinopril 20 mg PO DAILY #30 tab 01/15/20 [Last Taken Unknown] amLODIPine BESYLATE [Norvasc] 5 mg PO DAILY #30 tab 01/15/20 [Last Taken Unknown] glipiZIDE [Glipizide] 10 mg PO BID #60 tab 01/15/20 [Last Taken Unknown] metFORMIN HCL [Metformin HCl ER] 500 mg PO BID #60 tab.er.24h 01/15/20 [Last Taken Unknown] Gabapentin 300 mg PO TID 10/19/20 [Last Taken Unknown] Promethazine HCl [Phenergan] 25 mg PO QID PRN #10 tab 10/19/20 [Last Taken Unknown] Acyclovir [Zovirax] 400 mg PO TID PRN 11/27/20 [Last Taken Unknown] HYDROcodone/ACETAMINOPHEN [Hydrocodon-Acetaminophen 5-325] 1 ea PO Q4H PRN 11/27/20 [Last Taken Unknown] Insulin Aspart [Novolog Flexpen] 10 unit SQ BIDAC 11/27/20 [Last Taken Unknown] Insulin Glargine,Hum.rec.anlog [Lantus Solostar] 50 unit SQ .QPM 11/27/20 [Last Taken Unknown] Insulin Glargine,Hum.rec.anlog [Lantus Solostar] 55 unit SQ .QAM 11/27/20 [Last Taken Unknown] Ketorolac Tromethamine 10 mg PO QID PRN 11/27/20 [Last Taken Unknown] Metoclopramide HCl [Reglan] 10 mg PO QID 11/27/20 [Last Taken Unknown] Nortriptyline HCl 50 mg PO HS 11/27/20 [Last Taken Unknown] hydrOXYzine HCL [Atarax] 10 mg PO QID PRN 11/27/20 [Last Taken Unknown] Prochlorperazine Maleate [Compazine] 10 mg PO TID #10 tab 02/02/21 [Last Taken Unknown] Cefuroxime Axetil [Ceftin] 250 mg PO Q12H #20 tab 02/13/21 [Last Taken Unknown] - History of Present History Narrative: Patient presents to the ED via EMS, vomiting for days. Cannot keep anything down and cannot take her meds. She has abdominal cramping like what she gets with the cyclic vomiting she has. She has endoscopy scheduled Sunday at [facility] because she cannot swallow her pills and there is concern about some kind of possible esophageal problem. She feels very dehydrated and was so dehydrated that EMS could not get an IV started. She feels weak all over. Last testing revealed no gastroparesis by report Timing: constant, getting worse Severity: severe Modifying Factors - (Improves): Present: other - nothing Modifying Factors - (Worsens): Present: other - nothing Review of Systems - Review of Systems Constitutional: Absent: fever EYE: Present: no symptoms reported ENT: Present: no symptoms reported Respiratory: Absent: shortness of breath Cardiology: Absent: chest pain Gastrointestinal/Abdominal: Present: See HPI Genitourinary: Present: other - recurrent UTIs, no current antibiotics Neurological: Absent: weakness All Other Systems: All systems neg except as marked Medical History (Last Reviewed 03/12/21 @ 13:31 by Gus Lainez MD) Cyclical vomiting Hx of diabetes mellitus type 2 Hx of essential hypertension Hypercholesteremia Neuropathy Surgical History: Surgical History (Last Reviewed 03/12/21 @ 13:31 by Gus Lainez MD) History of ankle surgery Family History: Family History (Last Reviewed 03/12/21 @ 13:31 by Gus Lainez MD) Other No pertinent family history Social History: (Last Reviewed 03/12/21 @ 13:31 by Gus Lainez MD) Social History: adopted: No Marital status: Single lives independently: Yes household members: significant other number of children: 0 parent marital status: umarried, living together current occupational status: unemployed Highest level of school completed/degree received: high school graduate Tobacco: Smoking Status: Never smoker Alcohol: alcohol intake: never Substance Use: substance use type: marijuana details: states she hasn't used for 2 weeks Dietary Habits: caffeine: No Physical Exam - Physical Exam General Appearance: Present: alert, other - mild distress, rocking back and forth Head Exam: Present: normal inspection, no evidence of injury Eye Exam: Normal inspection: bilateral, PERRL: bilateral Ears, Nose, Throat: Present: dry mucous membranes Neck: Present: normal inspection Respiratory: Present: no respiratory distress, normal breath sounds, lungs clear Cardiovascular/Chest: Present: tachycardia Gastrointestinal/Abdominal: Present: normal bowel sounds, soft, other - Mild diffuse tenderness to deep palpation. No masses, no clinical suggestion of surgical process or peritoneal signs Back Exam: Absent: CVA tenderness (R), CVA tenderness (L) Extremity Exam: Present: normal range of motion Neurological Exam: Present: alert, no motor/sensory deficits Skin Exam: Present: normal color, warm/dry Progress - Results and Orders Patient's Lab Results:: I have reviewed the patient's lab results. - Vital Signs Patient's Vital Signs:: I have reviewed the patient's vital signs. Vital Signs: Vital Signs 03/12/21 09:48 Temperature 36.6 C Pulse Rate 130 H Respiratory Rate 18 O2 Sat by Pulse Oximetry 93 - Progress/Reassessment Chief Complaint: Nausea/Vomiting Progress Note-Subjective: 03/12/21 13:32 Patient give 2 L NS and multiple medications. Despite this she still could not eat and would be unable to take her oral medications. She did not feel she could be discharged and relates that she will normally be admitted when she gets to this point. I doubt DKA for the serum ketones, likely dehydration is the etiology. I spoke with Dr Muñoz and discussed the case, she is agreeable to observation. Patient is happy with this. Departure Clinical Impression: Dehydration, High blood ketone body measurement, Diabetes, Cyclic vomiting syndrome, Intractable vomiting - Departure Disposition: Still a patient Condition: Fair
[2021-03-12] MEDS ORDERED: KETOROLAC TROMETHAMINE 10 MG TABLET PO PRN (14:43)
[2021-03-12] MEDS ORDERED: HYDROcodone/ACETAMINOPHEN 1 EACH TABLET PO PRN (14:43)
[2021-03-12] MEDS ORDERED: PROMETHAZINE HCL 25 MG TABLET PO PRN (14:43)
[2021-03-12] MEDS ORDERED: hydrOXYzine HCL 10 MG TABLET PO PRN (14:43)
[2021-03-12] MEDS ORDERED: ACETAMINOPHEN 325 MG TABLET PO PRN (14:43)
[2021-03-12] MEDS ORDERED: ACYCLOVIR 200 MG CAPSULE PO PRN (14:43)
--- NOTE | 2021-03-12 15:42 | HP ---
Chief Complaint - Chief Complaint Date of Service: 03/12/21 Time of Service: 15:23 Chief Complaint: I have abdominal pain and nausea and vomiting for several days. History of Present Illness: 40-year-old female with past medical history of obesity, type 2 diabetes, hypertension, and hypercholesterolemia was evaluated in the ER for epigastric pain accompanied with nausea and vomiting of several days duration. Patient reports number the past several months she has been having increasing difficulty swallowing for solids and now liquids. She reports when eating or drinking the contents get stuck in her upper esophagus. She has discussed this with her PCP and the EGD was scheduled for this upcoming Sunday for further evaluation. A week ago she started having epigastric pain and increasing difficulty swallowing. Today she reports she has not eaten or drink anything for over 2 days. Now she feels weak and extremely dehydrated. Patient was hospitalized for similar episode several months ago when she started vomiting and having epigastric pain. Upon questioning she admits to smoking marijuana for her symptoms which she says helps, however during the conversation it was explained to her that marijuana is associated with cyclical vomiting and tends to make vomiting worse. Recommendation to stop smoking marijuana was made although she did not agree because she says it relieves her symptoms. I encouraged the patient to discuss the situation further with her PCP and to undergo the scheduled EGD on Sunday for more answers. While in the ER the patient was treated with 2 L of IV fluids and was placed on an additional liter for maintenance which she is tolerating without any issues, she was also given medications for her nausea and vomiting which have significantly improved. She did not feel comfortable being discharged home due to her inability to take any of her meds or eat I requested to spend the night in the hospital for close monitoring instead. Medical History (Last Reviewed 03/12/21 @ 13:31 by Gus Lainez MD) Cyclical vomiting Hx of diabetes mellitus type 2 Hx of essential hypertension Hypercholesteremia Neuropathy Surgical History: Surgical History (Last Reviewed 03/12/21 @ 13:31 by Gus Lainez MD) History of ankle surgery Family History: Family History (Last Reviewed 03/12/21 @ 13:31 by Gus Lainez MD) Other No pertinent family history Social History: (Last Reviewed 03/12/21 @ 15:11 by Arnel Erickson RN) Social History: adopted: No Marital status: Single lives independently: Yes household members: significant other number of children: 0 parent marital status: umarried, living together current occupational status: unemployed Highest level of school completed/degree received: high school graduate Tobacco: Smoking Status: Never smoker Alcohol: alcohol intake: never Substance Use: substance use type: marijuana details: states she hasn't used for 2 weeks Dietary Habits: caffeine: No Peds Patient Hx - Developmental: No Pertinent Hx Peds Patient Hx - Medical: No Pertinent Hx Peds Patient Hx - Cardiac/Respiratory: No Pertinent Hx Peds Patient Hx - Surgical: No Surgical History Patient History - Cancer: No Hx of Cancer Review Of Systems (GEN) - Review of Systems Generalized/Overall Review: Present: Weakness EENTM: Present: No Symptoms Reported Respiratory: Present: No Symptoms Reported Cardiac: Present: No Symptoms Reported Abdominal: Present: Nausea, Vomiting, Abdominal Pain Genitourinary: Present: No Symptoms Reported Musculoskeletal: Present: No Symptoms Reported Neurological: Present: No Symptoms Reported Skin: Present: No Symptoms Reported Endocrine: Present: No Symptoms Reported Immunizations: IMMUNIZATION HX Immunizations Up to Date Yes History of Influenza Vaccine Yes Hx Pneumococcal Vaccination No Allergies/Adverse Reactions: Allergies Allergy/AdvReac Type Severity Reaction Status Date / Time No Known Allergies Allergy Verified 03/12/21 15:21 Home Medications: HOME MEDICATIONS Blood Sugar Diagnostic [Test Strips] 1 ea MC QID #1 bottle 01/15/20 [Last Taken Unknown] Lisinopril 20 mg PO DAILY #30 tab 01/15/20 [Last Taken Unknown] amLODIPine BESYLATE [Norvasc] 5 mg PO DAILY #30 tab 01/15/20 [Last Taken Unknown] glipiZIDE [Glipizide] 10 mg PO BID #60 tab 01/15/20 [Last Taken Unknown] metFORMIN HCL [Metformin HCl ER] 500 mg PO BID #60 tab.er.24h 01/15/20 [Last Taken Unknown] Gabapentin 300 mg PO TID 10/19/20 [Last Taken Unknown] Promethazine HCl [Phenergan] 25 mg PO QID PRN #10 tab 10/19/20 [Last Taken Unknown] Insulin Aspart [Novolog Flexpen] 10 unit SQ BIDAC 11/27/20 [Last Taken Unknown] Insulin Glargine,Hum.rec.anlog [Lantus Solostar] 50 unit SQ .QPM 11/27/20 [Last Taken Unknown] Ketorolac Tromethamine 10 mg PO QID PRN 11/27/20 [Last Taken Unknown] Metoclopramide HCl [Reglan] 10 mg PO QID 11/27/20 [Last Taken Unknown] Nortriptyline HCl 50 mg PO HS 11/27/20 [Last Taken Unknown] hydrOXYzine HCL [Atarax] 10 mg PO QID PRN 11/27/20 [Last Taken Unknown] Exam - Exam Vital Signs: Vital Signs - Last Taken Temp 36.6 C 03/12/21 09:48 Pulse 99 03/12/21 14:49 Resp 16 03/12/21 14:49 BP 119/97 H 03/12/21 14:49 Pulse Ox 98 03/12/21 14:49 Constitutional: Present: Alert, Oriented x3, Cooperative, Well developed, Well nourished, No distress, Obese Eye Exam: bilateral eye: normal inspection, PERRL, EOMI Neck: Present: non-tender, full range of motion, supple, normal inspection, trachea midline Back Exam: Present: normal inspection, no CVA tenderness, no vertebral tenderness Breasts: Present: Exam deferred, Nontender Respiratory: Present: chest non-tender, lungs clear, normal breath sounds, no respiratory distress, no accessory muscle use Cardiovascular/Chest: Present: normal peripheral pulses, regular rate, rhythm, no chest tenderness, no edema, no gallop, no JVD, no murmur, no rub Abdomen: Present: soft, nondistended, no hepatospenomegaly, no masses, tender - Epigastric tenderness on deep and superficial palpation, hypoactive /Rectal: Present: Exam deferred Extremity: Present: normal range of motion, non-tender, normal inspection, no pedal edema, no calf tenderness, normal capillary refill, pelvis stable Skin Exam: Present: normal color, warm/dry, no cyanosis Lymphatic: Present: no adenopathy Neurologic: Present: learning developer II-XII nml as tested, alert, normal mood/affect, oriented x 3 Appearance: Present: appropriate appearance, appropriate insight, neat, no memory impairment Eye contact: Present: cooperative, good eye contact, normal speech Thoughts: Present: normal thought pattern, no apparent hallucination Diagnostic Studies: Abnormal Lab Results 03/12/21 03/12/21 03/12/21 Range/Units 10:11 10:11 10:11 RBC 4.06 L (4.2-5.4) M/mm3 Hgb 12.2 L (12.5-16.0) gm/dL BUN/Creatinine Ratio 6.7 L (9.0-21.6) Random Glucose 204 H (70-110) mg/dL Albumin 3.3 L (3.4-5.0) gm/dl Lipase 46 L (73-393) U/L Urine Protein (NEGATIVE) mg/dL Urine Bilirubin (NEGATIVE) mg/dl Ur Epithelial Cells (0-5) /hpf Hyaline Casts (NONE) /LPF Urine Mucus (NONE) Urine Marijuana (THC) (NEGATIVE) Serum Ketones Positive - 20mg/dl H (NEGATIVE) 03/12/21 03/12/21 Range/Units 10:26 10:26 RBC (4.2-5.4) M/mm3 Hgb (12.5-16.0) gm/dL BUN/Creatinine Ratio (9.0-21.6) Random Glucose (70-110) mg/dL Albumin (3.4-5.0) gm/dl Lipase (73-393) U/L Urine Protein 100 H (NEGATIVE) mg/dL Urine Bilirubin 1 H (NEGATIVE) mg/dl Ur Epithelial Cells 5-10 H (0-5) /hpf Hyaline Casts 5-10 H (NONE) /LPF Urine Mucus Few - 1+ H (NONE) Urine Marijuana (THC) Positive H (NEGATIVE) Serum Ketones (NEGATIVE) Laboratory Results WBC 7.7 K/mm3 (4.0-10.5) 03/12/21 10:11 RBC 4.06 M/mm3 (4.2-5.4) L 03/12/21 10:11 Hgb 12.2 gm/dL (12.5-16.0) L 03/12/21 10:11 Hct 37.9 % (37.0-47.0) 03/12/21 10:11 MCV 93.3 fl (78-100) 03/12/21 10:11 MCH 30.0 pg (27-31) 03/12/21 10:11 MCHC 32.2 g/dl (32-36) 03/12/21 10:11 RDW 12.6 % (11.5-14.0) 03/12/21 10:11 Plt Count 392 K/mm3 (150-450) 03/12/21 10:11 MPV 9.4 fl (8-12.5) 03/12/21 10:11 Immature Gran % (Auto) 0.40 % (0.001-0.429) 03/12/21 10:11 Immature Gran # (Auto) 0.03 K/mm3 (0.000-0.0310) 03/12/21 10:11 Neutrophils % 61.0 % (42-75.0) 03/12/21 10:11 Lymphocytes % 32.6 % (20-51) 03/12/21 10:11 Monocytes % 5.2 % (0.0-9) 03/12/21 10:11 Eosinophils % 0.4 % (0.0-3.0) 03/12/21 10:11 Basophils % 0.4 % (0.0-1.0) 03/12/21 10:11 Nucleated RBC % 0.0 k/mm3 (0-1) 03/12/21 10:11 Neutrophils # 4.7 K/mm3 (1.3-6.0) 03/12/21 10:11 Lymphocytes # 2.50 k/mm3 (1.5-3.5) 03/12/21 10:11 Monocytes # 0.4 k/mm3 (0.0-1.0) 03/12/21 10:11 Eosinophils # 0.0 k/mm3 (0.0-0.7) 03/12/21 10:11 Absolute Basophils 0.0 k/mm3 (0.0-0.1) 03/12/21 10:11 Sodium 138 mmol/L (132-142) 03/12/21 10:11 Plasma Sodium 140 mmol/L (130-142) 03/12/21 10:11 Potassium 3.8 mmol/L (3.4-4.6) 03/12/21 10:11 Chloride 101 mmol/L (97-106) 03/12/21 10:11 Carbon Dioxide 28.1 mmol/L (24-32.6) 03/12/21 10:11 Anion Gap 12.7 mmol/L (6.8-13.8) 03/12/21 10:11 BUN 5 mg/dL (3-23) 03/12/21 10:11 Creatinine 0.75 mg/dL (0.4-1.4) 03/12/21 10:11 Est GFR (Non-Af Amer) 92 mL/min (60-130) 03/12/21 10:11 BUN/Creatinine Ratio 6.7 (9.0-21.6) L 03/12/21 10:11 Random Glucose 204 mg/dL (70-110) H 03/12/21 10:11 Calcium 9.4 mg/dL (7.9-10.9) 03/12/21 10:11 Calcium Adj for Albumin 9.6 mg/dL (8.4-10.2) 03/12/21 10:11 Total Bilirubin 1.1 mg/dL (0.0-1.1) 03/12/21 10:11 AST 22 U/L (0-48) 03/12/21 10:11 ALT 29 U/L (19-67) 03/12/21 10:11 Alkaline Phosphatase 89 U/L (50-170) 03/12/21 10:11 Total Protein 7.0 gm/dL (6.2-8.2) 03/12/21 10:11 Albumin 3.3 gm/dl (3.4-5.0) L 03/12/21 10:11 Lipase 46 U/L (73-393) L 03/12/21 10:11 Serum HCG, Qual Negative (NEGATIVE) 03/12/21 10:11 Urine Color Yellow 03/12/21 10:26 Urine Appearance Cloudy (CLEAR) 03/12/21 10:26 Urine pH 7.0 pH (5.0-7.0) 03/12/21 10:26 Ur Specific Sylvester 1.025 SP.GR. (1.005-1.010) 03/12/21 10:26 Urine Protein 100 mg/dL (NEGATIVE) H 03/12/21 10:26 Urine Glucose (UA) Negative mg/dL (NEGATIVE) 03/12/21 10:26 Urine Ketones 50 mg/dL (NEGATIVE) 03/12/21 10:26 Urine Blood Negative /ul (NEGATIVE) 03/12/21 10:26 Urine Nitrate Negative (NEGATIVE) 03/12/21 10:26 Urine Bilirubin 1 mg/dl (NEGATIVE) H 03/12/21 10:26 Urine Urobilinogen Normal EU/dl (NORMAL) 03/12/21 10:26 Ur Leukocyte Esterase Negative /ul (NEGATIVE) 03/12/21 10:26 Urine RBC None seen /hpf (0-5) 03/12/21 10:26 Urine WBC None seen /hpf (0-5) 03/12/21 10:26 Ur Epithelial Cells 5-10 /hpf (0-5) H 03/12/21 10:26 Urine Bacteria Trace (NONE) 03/12/21 10:26 Hyaline Casts 5-10 /LPF (NONE) H 03/12/21 10:26 Urine Mucus Few - 1+ (NONE) H 03/12/21 10:26 Urine Culture Comments No culture indicated 03/12/21 10:26 Urine Opiates Screen Negative (NEGATIVE) 03/12/21 10:26 Barbiturate Screen Negative (NEGATIVE) 03/12/21 10:26 Ur Phencyclidine Scrn Negative (NEGATIVE) 03/12/21 10:26 Urine Amphetamine Negative (NEGATIVE) 03/12/21 10:26 U Benzodiazepines Scrn Negative (NEGATIVE) 03/12/21 10:26 Urine Cocaine Screen Negative (NEGATIVE) 03/12/21 10:26 Urine Marijuana (THC) Positive (NEGATIVE) H 03/12/21 10:26 Serum Ketones Positive - 20mg/dl (NEGATIVE) H 03/12/21 10:11 SARS-CoV-2 (PCR) Not detected (NotDetected) 03/12/21 13:26 Assessment/Plan - Narrative Narrative: Patient was evaluated medical chart was in decision to admit for a diagnosis of moderate dehydration, generalized weakness, and intractable nausea and cyclical vomiting was made. The patient is currently on maintenance dose of IV hydration with normal saline which she is tolerating without any issues. She reports feeling better but still presents with residual nausea and inability to keep anything down. Therefore we will keep her in the hospital overnight for additional hydration and monitoring as well as management of her chronic conditions particularly her blood pressure and type 2 diabetes since she is nadiya ble to take any meds orally. We will reevaluate her in the morning. - Assessment/Plan (1) Intractable cyclical vomiting Problem: Resolved (2) Hypertension Problem: Chronic Qualifiers: (3) Diabetes Problem: Chronic Qualifiers: Diabetes mellitus type: type 2 (4) Tetrahydrocannabinol (THC) use disorder, moderate, dependence Problem: Chronic (5) Abdominal pain Problem: Acute (6) Dehydration Problem: Acute (7) High blood ketone body measurement Problem: Acute (8) Intractable vomiting Problem: Acute
[2021-03-12] MEDS: INSULIN REGULAR, HUMAN 100 UNITS/ML VIAL SC SCH ×2 (17:00→20:51)
[2021-03-12] MEDS: LISINOPRIL 20 MG TABLET PO SCH (17:01)
[2021-03-12] MEDS: PANTOPRAZOLE SODIUM 40 MG in NORMAL SALINE 100 ML IV SCH (17:04)
[2021-03-12] MEDS: GABAPENTIN 100 MG CAPSULE PO SCH (17:06)
[2021-03-12] MEDS: KETOROLAC TROMETHAMINE 30 MG/ML VIAL IV PRN (17:59)
[2021-03-12] MEDS ORDERED: LABETALOL HCL 5 MG/ML SYRINGE IV PRN (18:44)
[2021-03-12] MEDS: LABETALOL HCL 5 MG/ML VIAL IV PRN (19:11)
[2021-03-12] MEDS: ONDANSETRON HCL/PF 2 MG/ML VIAL IV PRN ×2 (19:18→23:55)
[2021-03-12] MEDS ORDERED: NORTRIPTYLINE HCL 25 MG CAPSULE PO SCH (21:00)
[2021-03-12] MEDS ORDERED: INSULIN GLARGINE,HUM.REC.ANLOG 100 UNITS/ML VIAL SC SCH (21:00)
[2021-03-13] MEDS: PANTOPRAZOLE SODIUM 40 MG in NORMAL SALINE 100 ML IV SCH (02:34)
[2021-03-13] MEDS: ONDANSETRON HCL/PF 2 MG/ML VIAL IV PRN (04:08)
[2021-03-13] MEDS: KETOROLAC TROMETHAMINE 30 MG/ML VIAL IV PRN ×2 (06:39)
[2021-03-13] MEDS: INSULIN REGULAR, HUMAN 100 UNITS/ML VIAL SC SCH (06:46)
[2021-03-13] MEDS: LABETALOL HCL 5 MG/ML VIAL IV PRN (06:57)
[2021-03-13] MEDS ORDERED: amLODIPine BESYLATE 5 MG TABLET PO SCH (09:00)
[2021-03-13] MEDS: GABAPENTIN 100 MG CAPSULE PO SCH (09:01)
[2021-03-13] MEDS: LISINOPRIL 20 MG TABLET PO SCH (09:02)
[2021-03-13 10:37] VITALS: BP 142/88
--- NOTE | 2021-03-13 10:42 | DS ---
(1) Intractable cyclical vomiting Problem: Resolved (2) Hypertension Problem: Chronic Qualifiers: (3) Diabetes Problem: Chronic Qualifiers: Diabetes mellitus type: type 2 (4) Tetrahydrocannabinol (THC) use disorder, moderate, dependence Problem: Chronic (5) Abdominal pain Problem: Acute Qualifiers: Abdominal location: epigastric Qualified Code(s): R10.13 - Epigastric pain (6) Dehydration Problem: Resolved (7) High blood ketone body measurement Problem: Acute (8) Intractable vomiting Problem: Resolved Date of Discharge:: 03/13/21 Hospital Course: 40-year-old female admitted for dehydration secondary to cyclical vomiting and epigastric abdominal pain was evaluated at bedside this morning was found to be afebrile and in no acute distress. Patient has shown clinical improvement since arriving at our facility. She tolerated 3 L of normal saline for hydration and antiemetics to control her symptoms. Since arriving to the floor the patient has not vomited however she continues to have difficulty swallowing solids as well as fluids, therefore we had to manage her blood press ure and other chronic conditions with IV hydration. She continues to report epigastric discomfort although she does note an improvement. She was started on clear liquid diet and is slowly starting to ingest by mouth. This morning she was encouraged to continue introducing clear liquids and later to full liquids to see how she does. The patient scheduled for an EGD at the [facility] tomorrow morning for further evaluation of her dysphagia and epigastric pain. Therefore we are discharging her with instructions to continue taking liquid pantoprazole which was deviously prescribed by her PCP and to make sure to attend tomorrow's scheduled appointment. She was also instructed to follow-up with her PCP within 3 to 5 days for further evaluation and treatment. The patient was once again reminded to refrain from smoking marijuana since it is associated with cyclical vomiting in order to avoid worsening of her condition. Procedures Performed: none Results and Findings: Lab Pending Results 03/12/21 10:11: WBC 7.7, RBC 4.06 L, Hgb 12.2 L, Hct 37.9, MCV 93.3, MCH 30.0, MCHC 32.2, RDW 12.6, Plt Count 392, MPV 9.4, Immature Gran % (Auto) 0.40, Immature Gran # (Auto) 0.03, Neutrophils % 61.0, Lymphocytes % 32.6, Monocytes % 5.2, Eosinophils % 0.4, Basophils % 0.4, Nucleated RBC % 0.0, Neutrophils # 4.7, Lymphocytes # 2.50, Monocytes # 0.4, Eosinophils # 0.0, Absolute Basophils 0.0 03/12/21 10:11: Sodium 138, Plasma Sodium 140, Potassium 3.8, Chloride 101, Carbon Dioxide 28.1, Anion Gap 12.7, BUN 5, Creatinine 0.75, Est GFR (Non-Af Amer) 92, BUN/Creatinine Ratio 6.7 L, Random Glucose 204 H, Calcium 9.4, Calcium Adj for Albumin 9.6, Total Bilirubin 1.1, AST 22, ALT 29, Alkaline Phosphatase 89, Total Protein 7.0, Albumin 3.3 L, Lipase 46 L 03/12/21 10:11: Serum HCG, Qual Negative 03/12/21 10:11: Serum Ketones Positive - 20mg/dl H 03/12/21 10:26: Urine Color Yellow, Urine Appearance Cloudy, Urine pH 7.0, Ur Specific Cochran 1.025, Urine Protein 100 H, Urine Glucose (UA) Negative, Urine Ketones 50, Urine Blood Negative, Urine Nitrate Negative, Urine Bilirubin 1 H, Urine Urobilinogen Normal, Ur Leukocyte Esterase Negative, Urine RBC None seen, Urine WBC None seen, Ur Epithelial Cells 5-10 H, Urine Bacteria Trace, Hyaline Casts 5-10 H, Urine Mucus Few - 1+ H, Urine Culture Comments No culture indicated 03/12/21 10:26: Urine Opiates Screen Negative, Barbiturate Screen Negative, Ur Phencyclidine Scrn Negative, Urine Amphetamine Negative, U Benzodiazepines Scrn Negative, Urine Cocaine Screen Negative, Urine Marijuana (THC) Positive H 03/12/21 13:26: SARS-CoV-2 (PCR) Not detected Discharge Location: Home Disposition: Home self-care Condition: Fair Discharge Activity: Activity as tolerated Discharge Diet: Clear Liquids Referrals: Stan Fabian MD [Non Staff Physicians] - Complete Home Medications List: Complete Home Medication List: Blood Sugar Diagnostic [Test Strips] 1 ea QID #1 bottle 01/15/20 Lisinopril 20 mg PO DAILY #30 tab 01/15/20 amLODIPine BESYLATE [Norvasc] 5 mg PO DAILY #30 tab 01/15/20 glipiZIDE [Glipizide] 10 mg PO BID #60 tab 01/15/20 metFORMIN HCL [Metformin HCl ER] 500 mg PO BID #60 tab.er.24h 01/15/20 Gabapentin 300 mg PO TID 10/19/20 Promethazine HCl [Phenergan (Promethazine)] 25 mg PO QID PRN #10 tab 10/19/20 Insulin Aspart [Novolog Flexpen] 10 unit SQ BIDAC 11/27/20 Insulin Glargine,Hum.rec.anlog [Lantus Solostar] 50 unit SQ BID 11/27/20 Ketorolac Tromethamine 10 mg PO QID PRN 11/27/20 Metoclopramide HCl [Reglan] 10 mg PO QID 11/27/20 Nortriptyline HCl 50 mg PO HS 11/27/20 hydrOXYzine HCL [Atarax] 10 mg PO QID PRN 11/27/20 Forms: Patient Portal Registration
== END 2021-03-13 11:25 | disposition home or self-care (01) ==
LOC: ER 09:47 → MS 09:47
PROVIDERS: ADMIT Family Medicine; ATTEND Family Medicine